=== PATIENT | female | born 1985 | race African-American/Black ===

== ENCOUNTER 2017-11-14 11:35 | Emergency (ER) | payer OTHER ==
[2017-11-14 15:40] LABS: ADD MAN DIFF? NO
[2017-11-14 15:42] LABS: BASOPHILS % 0.5 % (0.0-2.0); EOSINOPHILS # 0.3 10^3/ul (0.0-0.5); EOSINOPHILS % 3.7 % (0.0-7.0); HEMOGLOBIN 8.2 g/dl (12.0-16.0); LYMPHOCYTES # 2.5 10^3/ul (0.8-2.9); LYMPHOCYTES % 31.2 % (15.0-51.0); MEAN CORPUSCULAR HEMOGLOBIN 26.5 pg (29.0-33.0); MEAN CORPUSCULAR HGB CONC 30.4 g/dl (32.0-37.0); MEAN CORPUSCULAR VOLUME 87.1 fl (82.0-101.0); MEAN PLATELET VOLUME 9.4 fl (7.4-10.4); MONOCYTE # 0.6 10^3/ul (0.3-0.9); MONOCYTES % 7.7 % (0.0-11.0); NEUTROPHIL # 4.6 10^3/ul (1.6-7.5); NEUTROPHILS % 56.5 % (39.0-77.0); PLATELET COUNT 576 10^3/UL (140-415); RED CELL DISTRIBUTION WIDTH 20.3 % (11.5-14.5)
[2017-11-14 15:42] LABS: WHITE BLOOD COUNT 8.1 10^3/ul (4.8-10.8)
[2017-11-14 15:59] LABS: ALANINE AMINOTRANSFERASE 24 IU/L (13-69); ALBUMIN 4.5 g/dl (3.3-4.9); ALBUMIN/GLOBULIN RATIO 1.36; ALKALINE PHOSPHATASE 46 IU/L (42-121); ANION GAP 13 (8-16); ASPARTATE AMINO TRANSFERASE 18 IU/L (15-46); BLOOD UREA NITROGEN 10 mg/dl (7-20); CALCIUM 9.5 mg/dl (8.4-10.2); CARBON DIOXIDE 27 mmol/L (21-31); CHLORIDE 105 mmol/L (97-110); CREATININE 0.74 mg/dl (0.44-1.00); GLUCOSE 99 mg/dl (70-220); POTASSIUM 3.4 mmol/L (3.5-5.1); SODIUM 142 mmol/L (135-144); TOTAL PROTEIN 7.8 g/dl (6.1-8.1)
== END 2017-11-14 16:40 | disposition home or self-care (01) ==
LOC: FTE 11:35
DX: D64.9 Anemia, unspecified (principal); E66.9 Obesity, unspecified
CPT/HCPCS: 36415; 80053; 85025; 99283

== ENCOUNTER 2017-12-29 02:47 | Observation (INO) | payer OTHER ==
[2017-12-29 07:27] LABS: ADD MAN DIFF? NO
[2017-12-29 07:35] LABS: ABNORMAL IP MESSAGE 1; BASOPHIL # 0.1 10^3/ul (0.0-0.1); BASOPHILS % 0.7 % (0.0-2.0); EOSINOPHILS # 0.3 10^3/ul (0.0-0.5); EOSINOPHILS % 3.6 % (0.0-7.0); HEMATOCRIT 21.2 % (37.0-47.0); LYMPHOCYTES # 1.7 10^3/ul (0.8-2.9); LYMPHOCYTES % 23.2 % (15.0-51.0); MEAN CORPUSCULAR HEMOGLOBIN 23.2 pg (29.0-33.0); MEAN CORPUSCULAR HGB CONC 29.7 g/dl (32.0-37.0); MEAN CORPUSCULAR VOLUME 78.2 fl (82.0-101.0); MEAN PLATELET VOLUME 10.4 fl (7.4-10.4); MONOCYTE # 0.6 10^3/ul (0.3-0.9); NEUTROPHIL # 4.6 10^3/ul (1.6-7.5); NEUTROPHILS % 64.2 % (39.0-77.0); PLATELET COUNT 364 10^3/UL (140-415); RED BLOOD COUNT 2.71 10^6/ul (4.20-5.40); RED CELL DISTRIBUTION WIDTH 21.2 % (11.5-14.5)
[2017-12-29 07:35] LABS: WHITE BLOOD COUNT 7.2 10^3/ul (4.8-10.8)
[2017-12-29 07:57] LABS: ALANINE AMINOTRANSFERASE 28 IU/L (13-69); ALBUMIN 4.3 g/dl (3.3-4.9); ALBUMIN/GLOBULIN RATIO 1.34; ALKALINE PHOSPHATASE 56 IU/L (42-121); ANION GAP 19 (8-16); ASPARTATE AMINO TRANSFERASE 20 IU/L (15-46); BLOOD UREA NITROGEN 10 mg/dl (7-20); CALCIUM 9.1 mg/dl (8.4-10.2); CARBON DIOXIDE 24 mmol/L (21-31); CHLORIDE 111 mmol/L (97-110); GLUCOSE 111 mg/dl (70-220); LIPASE 774 U/L (23-300); POTASSIUM 3.9 mmol/L (3.5-5.1); SODIUM 150 mmol/L (135-144); TOTAL PROTEIN 7.5 g/dl (6.1-8.1)
[2017-12-29 08:06] LABS: ADD UMIC YES; UR ASCORBIC ACID NEGATIVE (NEGATIVE); UR BACTERIA FEW /HPF (NONE SEEN); UR BILIRUBIN (Dip) NEGATIVE (NEGATIVE); UR BLOOD (Dip) 3+ mg/dL (NEGATIVE); UR CLARITY SLIGHTLY CLOUDY (CLEAR); UR COLOR YELLOW (YELLOW); UR GLUCOSE (Dip) NEGATIVE (NEGATIVE); UR KETONES (Dip) NEGATIVE (NEGATIVE); UR LEUKOCYTE ESTERASE (Dip) NEGATIVE Leu/ul (NEGATIVE); UR NITRITE (Dip) NEGATIVE (NEGATIVE); UR RBC > 182 /HPF (0-5); UR SPECIFIC GRAVITY (Dip) 1.018 (1.003-1.030); UR TOTAL PROTEIN (Dip) 2+ mg/dl (NEGATIVE); UR UROBILINOGEN (Dip) NEGATIVE (NEGATIVE); UR WBC 13 /HPF (0-5)
[2017-12-29 08:14] LABS: POSITIVE DIFF @See below
[2017-12-29 08:15] LABS: HEMOGLOBIN 6.3 g/dl (12.0-16.0); PATH REVIEW? YES
[2017-12-29] MEDS: SOD CHLORIDE 0.9% 250 ML IV (09:09)
[2017-12-29] MEDS ORDERED: ACETAMINOPHEN 325 MG TAB PO ×2 (10:00→11:30)
[2017-12-29] MEDS ORDERED: ONDANSETRON 4 MG INJ IV (10:00)
[2017-12-29 11:08] LABS: IMMEDIATE SPIN CROSSMATCH 1 3
[2017-12-29] MEDS: DOCUSATE SODIUM 100 MG CAP PO ×2 (11:30→23:30)
[2017-12-29] MEDS: FUROSEMIDE 20 MG INJ IV (11:30)
[2017-12-29] MEDS ORDERED: ZOLPIDEM 5 MG TAB PO (11:30)
[2017-12-29] MEDS: FAMOTIDINE 20 MG TAB PO ×2 (11:30→21:43)
[2017-12-29] MEDS: LEVOFLOXACIN 500MG/D5W (PMX) 100 ML IVPB (12:00)
[2017-12-29 14:15] LABS: CANCER ANTIGEN 125 7.2 U/ml (0.0-35.0)
[2017-12-29] MEDS: FERROUS SULFATE (EC) 325 MG TAB PO (21:43)
[2017-12-29] MEDS: HYDROCODONE/APAP (5/325) TAB PO (21:56)
[2017-12-30] MEDS: FERROUS SULFATE (EC) 325 MG TAB PO ×2 (09:04→21:11)
[2017-12-30] MEDS: FAMOTIDINE 20 MG TAB PO ×2 (09:04→21:11)
[2017-12-30] MEDS: HYDROCODONE/APAP (5/325) TAB PO (09:53)
[2017-12-30 10:51] LABS: ADD MAN DIFF? NO
[2017-12-30] MEDS: morphine 2 MG INJ IV ×3 (10:53→21:12)
[2017-12-30 10:58] LABS: BASOPHIL # 0.1 10^3/ul (0.0-0.1); BASOPHILS % 0.7 % (0.0-2.0); EOSINOPHILS # 0.3 10^3/ul (0.0-0.5); EOSINOPHILS % 4.7 % (0.0-7.0); HEMATOCRIT 28.4 % (37.0-47.0); HEMOGLOBIN 9.2 g/dl (12.0-16.0); LYMPHOCYTES # 1.9 10^3/ul (0.8-2.9); LYMPHOCYTES % 26.6 % (15.0-51.0); MEAN CORPUSCULAR HEMOGLOBIN 25.8 pg (29.0-33.0); MEAN CORPUSCULAR HGB CONC 32.4 g/dl (32.0-37.0); MEAN CORPUSCULAR VOLUME 79.6 fl (82.0-101.0); MEAN PLATELET VOLUME 10.3 fl (7.4-10.4); MONOCYTE # 0.5 10^3/ul (0.3-0.9); MONOCYTES % 7.5 % (0.0-11.0); NEUTROPHIL # 4.2 10^3/ul (1.6-7.5); NEUTROPHILS % 59.8 % (39.0-77.0); NUCLEATED RED BLOOD CELLS% 0.3 /100WBC (0.0-0.0); PLATELET COUNT 323 10^3/UL (140-415); RED BLOOD COUNT 3.57 10^6/ul (4.20-5.40); RED CELL DISTRIBUTION WIDTH 19.1 % (11.5-14.5)
[2017-12-30 10:58] LABS: WHITE BLOOD COUNT 7.1 10^3/ul (4.8-10.8)
[2017-12-30] MEDS: SODIUM CHLORIDE 0.45% 500 ML BAG IV* (11:09)
[2017-12-30 11:11] LABS: ANION GAP 18 (8-16); BLOOD UREA NITROGEN 9 mg/dl (7-20); CALCIUM 8.6 mg/dl (8.4-10.2); CARBON DIOXIDE 21 mmol/L (21-31); CHLORIDE 111 mmol/L (97-110); CREATININE 0.79 mg/dl (0.44-1.00); GLUCOSE 112 mg/dl (70-220); MAGNESIUM 1.8 mg/dl (1.7-2.5); PHOSPHORUS 3.1 mg/dl (2.5-4.9); POTASSIUM 3.7 mmol/L (3.5-5.1); SODIUM 146 mmol/L (135-144)
[2017-12-30 11:12] LABS: AMYLASE 69 U/L (11-123)
[2017-12-30 11:12] LABS: LIPASE 59 U/L (23-300)
[2017-12-30] MEDS: DOCUSATE SODIUM 100 MG CAP PO ×2 (11:51→23:42)
[2017-12-30] MEDS: LEVOFLOXACIN 500MG/D5W (PMX) 100 ML IVPB (12:16)
[2017-12-30] MEDS: SOD CHLORIDE 0.45% 1,000 ML IV ×3 (12:16→23:46)
[2017-12-30] MEDS: ONDANSETRON 4 MG INJ IV ×2 (13:14→21:19)
[2017-12-30] MEDS: ALPRAZOLAM 0.25 MG TAB PO (13:35)
[2017-12-30 15:07] LABS: SODIUM 145 mmol/L (135-144)
[2017-12-30] MEDS: SOD FERRIC GLUC COMPLX 125 MG in SOD CHLORIDE 0.9% 100 ML IVPB (16:39)
[2017-12-31] MEDS: morphine 2 MG INJ IV ×3 (01:16→09:45)
[2017-12-31 06:00] LABS: ADD MAN DIFF? NO
[2017-12-31 06:07] LABS: BASOPHIL # 0.1 10^3/ul (0.0-0.1); BASOPHILS % 0.7 % (0.0-2.0); EOSINOPHILS # 0.5 10^3/ul (0.0-0.5); EOSINOPHILS % 4.8 % (0.0-7.0); HEMATOCRIT 27.1 % (37.0-47.0); HEMOGLOBIN 8.9 g/dl (12.0-16.0); LYMPHOCYTES # 2.2 10^3/ul (0.8-2.9); MEAN CORPUSCULAR HGB CONC 32.8 g/dl (32.0-37.0); MEAN CORPUSCULAR VOLUME 79.2 fl (82.0-101.0); MEAN PLATELET VOLUME 10.8 fl (7.4-10.4); MONOCYTE # 0.8 10^3/ul (0.3-0.9); NEUTROPHILS % 62.7 % (39.0-77.0); NUCLEATED RED BLOOD CELLS% 0.3 /100WBC (0.0-0.0); PLATELET COUNT 344 10^3/UL (140-415); RED BLOOD COUNT 3.42 10^6/ul (4.20-5.40); RED CELL DISTRIBUTION WIDTH 19.4 % (11.5-14.5)
[2017-12-31 06:07] LABS: WHITE BLOOD COUNT 9.6 10^3/ul (4.8-10.8)
[2017-12-31 06:23] LABS: ANION GAP 15 (8-16); BLOOD UREA NITROGEN 11 mg/dl (7-20); CALCIUM 8.8 mg/dl (8.4-10.2); CARBON DIOXIDE 24 mmol/L (21-31); CHLORIDE 112 mmol/L (97-110); CREATININE 0.92 mg/dl (0.44-1.00); GLUCOSE 104 mg/dl (70-220); LIPASE 67 U/L (23-300); POTASSIUM 4.1 mmol/L (3.5-5.1); SODIUM 147 mmol/L (135-144)
[2017-12-31 06:23] LABS: AMYLASE 60 U/L (11-123)
[2017-12-31] MEDS: SOD CHLORIDE 0.45% 1,000 ML IV ×3 (08:00→23:24)
[2017-12-31] MEDS: FERROUS SULFATE (EC) 325 MG TAB PO ×2 (08:53→22:01)
[2017-12-31] MEDS: FAMOTIDINE 20 MG TAB PO ×2 (08:53→22:01)
[2017-12-31] MEDS: ONDANSETRON 4 MG INJ IV (09:46)
[2017-12-31] MEDS: DOCUSATE SODIUM 100 MG CAP PO ×2 (11:28→22:01)
[2017-12-31] MEDS: LEVOFLOXACIN 500MG/D5W (PMX) 100 ML IVPB (11:28)
[2017-12-31] MEDS: POLYETHYLENE GLYCOL 17 GM PACKET PO ×2 (13:03→22:01)
[2017-12-31] MEDS ORDERED: LACTULOSE 30ML CUP PO (14:00)
[2017-12-31] MEDS: LACTULOSE 30ML CUP PO (14:04)
[2017-12-31] MEDS: MINERAL OIL 133 ML ENEMA PR (14:24)
[2017-12-31] MEDS ORDERED: traMADol 50 MG TAB PO (15:30)
[2017-12-31] MEDS: SOD FERRIC GLUC COMPLX 125 MG in SOD CHLORIDE 0.9% 100 ML IVPB (17:06)
[2017-12-31] MEDS: MAGNESIUM CITRATE 300 ML BTL PO (22:00)
[2018-01-01] MEDS ORDERED: MINERAL OIL 133 ML ENEMA PR (01:00)
[2018-01-01] MEDS: SOD CHLORIDE 0.45% 1,000 ML IV (07:04)
[2018-01-01] MEDS: POLYETHYLENE GLYCOL 17 GM PACKET PO (09:08)
[2018-01-01] MEDS: FERROUS SULFATE (EC) 325 MG TAB PO (09:08)
[2018-01-01] MEDS: FAMOTIDINE 20 MG TAB PO (09:08)
[2018-01-01] MEDS: DOCUSATE SODIUM 100 MG CAP PO (09:09)
[2018-01-01 09:16] LABS: HEPATITIS C VIRAL ANTIBODY NEGATIVE (NEGATIVE)
[2018-01-01 09:24] LABS: HIV 1&2 ANTIBODY NEGATIVE (NEGATIVE)
[2018-01-01] MEDS: LEVOFLOXACIN 500MG/D5W (PMX) 100 ML IVPB (11:30)
[2018-01-01] MEDS: PEG/ELECTROLYTES 4L BTL PO (12:57)
[2018-01-01] MEDS: SOD FERRIC GLUC COMPLX 125 MG in SOD CHLORIDE 0.9% 100 ML IVPB (17:50)
== END 2018-01-01 19:00 | disposition home or self-care (01) ==
LOC: FTE 02:47 → MS2 10:00
DX: N92.1 Excessive and frequent menstruation with irregular cycle (principal); N93.8 Other specified abnormal uterine and vaginal bleeding; D25.9 Leiomyoma of uterus, unspecified; K56.41 Fecal impaction; K85.90 Acute pancreatitis without necrosis or infection, unspecified; F12.10 Cannabis abuse, uncomplicated; E66.01 Morbid (severe) obesity due to excess calories; Z68.41 Body mass index [BMI] 40.0-44.9, adult; E87.0 Hyperosmolality and hypernatremia
CPT/HCPCS: 36430; 72195; 74018; 74176; 76705; 76830; 76856; 80048; 80053; 81001; 82150; 83690; 83735; 84100; 84295; 84703; 85025; 86304; 86703; 86803; 86850; 86900; 86901; 86920; 87086; 87536; 99285-25

== ENCOUNTER 2018-02-10 08:34 | Emergency (ER) | payer OTHER | END 2018-02-10 10:14 | disposition home or self-care (01) | LOC: FTE 08:34 | DX: J20.9 Acute bronchitis, unspecified (principal); J45.909 Unspecified asthma, uncomplicated | CPT/HCPCS: 99284 ==

== ENCOUNTER 2018-03-01 15:56 | Emergency (ER) | payer OTHER ==
[2018-03-01] MEDS: KETOROLAC 30 MG INJ IV (17:49)
[2018-03-01 17:52] LABS: ADD MAN DIFF? NO
[2018-03-01 17:55] LABS: WHITE BLOOD COUNT 8.9 10^3/ul (4.8-10.8)
[2018-03-01 17:55] LABS: BASOPHILS % 0.3 % (0.0-2.0); EOSINOPHILS # 0.4 10^3/ul (0.0-0.5); HEMATOCRIT 28.8 % (37.0-47.0); HEMOGLOBIN 8.7 g/dl (12.0-16.0); LYMPHOCYTES # 2.5 10^3/ul (0.8-2.9); LYMPHOCYTES % 28.1 % (15.0-51.0); MEAN CORPUSCULAR HGB CONC 30.2 g/dl (32.0-37.0); MONOCYTE # 0.7 10^3/ul (0.3-0.9); MONOCYTES % 7.7 % (0.0-11.0); NEUTROPHIL # 5.3 10^3/ul (1.6-7.5); NEUTROPHILS % 59.6 % (39.0-77.0); PLATELET COUNT 576 10^3/UL (140-415); RED BLOOD COUNT 3.35 10^6/ul (4.20-5.40)
[2018-03-01 18:10] LABS: ADD UMIC YES; UR AMORPHOUS CRYSTAL FEW /HPF (NONE SEEN); UR ASCORBIC ACID 40 mg/dL (NEGATIVE); UR BILIRUBIN (Dip) NEGATIVE (NEGATIVE); UR BLOOD (Dip) NEGATIVE (NEGATIVE); UR CLARITY CLOUDY (CLEAR); UR COLOR YELLOW (YELLOW); UR GLUCOSE (Dip) NEGATIVE (NEGATIVE); UR KETONES (Dip) NEGATIVE (NEGATIVE); UR LEUKOCYTE ESTERASE (Dip) NEGATIVE Leu/ul (NEGATIVE); UR NITRITE (Dip) NEGATIVE (NEGATIVE); UR RBC 0 /HPF (0-5); UR SQUAMOUS EPITHELIAL CELL FEW /HPF (FEW); UR TOTAL PROTEIN (Dip) NEGATIVE (NEGATIVE); UR UROBILINOGEN (Dip) NEGATIVE (NEGATIVE); UR WBC 0 /HPF (0-5)
[2018-03-01 18:15] LABS: ALANINE AMINOTRANSFERASE 22 IU/L (13-69); ALBUMIN 4.5 g/dl (3.3-4.9); ALBUMIN/GLOBULIN RATIO 1.28; ALKALINE PHOSPHATASE 46 IU/L (42-121); ANION GAP 15 (8-16); ASPARTATE AMINO TRANSFERASE 26 IU/L (15-46); BILIRUBIN,INDIRECT 0.1 mg/dl (0-1.1); BILIRUBIN,TOTAL 0.1 mg/dl (0.2-1.3); BLOOD UREA NITROGEN 11 mg/dl (7-20); CALCIUM 9.2 mg/dl (8.4-10.2); CARBON DIOXIDE 26 mmol/L (21-31); CHLORIDE 105 mmol/L (97-110); CREATININE 0.74 mg/dl (0.44-1.00); GLUCOSE 91 mg/dl (70-220); LIPASE 218 U/L (23-300); SODIUM 142 mmol/L (135-144)
== END 2018-03-01 18:58 | disposition home or self-care (01) ==
LOC: FTE 15:56
DX: R10.31 Right lower quadrant pain (principal)
CPT/HCPCS: 36415; 80053; 81001; 81025; 83690; 85025; 96374; 99284-25

== ENCOUNTER 2018-03-09 22:10 | Emergency (ER) | payer OTHER ==
[2018-03-10] MEDS: morphine 4 MG/ML VIAL IV (00:24)
[2018-03-10] MEDS: ONDANSETRON 4 MG INJ IV (00:24)
[2018-03-10] MEDS: LACTATED RINGER'S 1,000 ML IV (00:25)
[2018-03-10 00:34] LABS: ADD MAN DIFF? NO
[2018-03-10 00:52] LABS: WHITE BLOOD COUNT 9.5 10^3/ul (4.8-10.8)
[2018-03-10 00:52] LABS: BASOPHIL # 0.1 10^3/ul (0.0-0.1); BASOPHILS % 0.5 % (0.0-2.0); EOSINOPHILS # 0.4 10^3/ul (0.0-0.5); EOSINOPHILS % 4.4 % (0.0-7.0); HEMATOCRIT 31.3 % (37.0-47.0); HEMOGLOBIN 9.2 g/dl (12.0-16.0); LYMPHOCYTES # 2.6 10^3/ul (0.8-2.9); LYMPHOCYTES % 27.7 % (15.0-51.0); MEAN CORPUSCULAR HEMOGLOBIN 25.2 pg (29.0-33.0); MEAN CORPUSCULAR HGB CONC 29.4 g/dl (32.0-37.0); MEAN CORPUSCULAR VOLUME 85.8 fl (82.0-101.0); MEAN PLATELET VOLUME 10.3 fl (7.4-10.4); MONOCYTE # 0.9 10^3/ul (0.3-0.9); MONOCYTES % 9.4 % (0.0-11.0); NEUTROPHIL # 5.5 10^3/ul (1.6-7.5); NEUTROPHILS % 57.7 % (39.0-77.0); PLATELET COUNT 484 10^3/UL (140-415); RED BLOOD COUNT 3.65 10^6/ul (4.20-5.40); RED CELL DISTRIBUTION WIDTH 20.4 % (11.5-14.5)
[2018-03-10 00:58] LABS: ALANINE AMINOTRANSFERASE 21 IU/L (13-69); ALBUMIN 4.3 g/dl (3.3-4.9); ALBUMIN/GLOBULIN RATIO 1.26; ALKALINE PHOSPHATASE 49 IU/L (42-121); ANION GAP 14 (8-16); ASPARTATE AMINO TRANSFERASE 20 IU/L (15-46); BLOOD UREA NITROGEN 12 mg/dl (7-20); CALCIUM 9.7 mg/dl (8.4-10.2); CARBON DIOXIDE 29 mmol/L (21-31); CHLORIDE 108 mmol/L (97-110); CREATININE 0.84 mg/dl (0.44-1.00); GLUCOSE 78 mg/dl (70-220); LIPASE 95 U/L (23-300); POTASSIUM 3.5 mmol/L (3.5-5.1); SODIUM 147 mmol/L (135-144); TOTAL PROTEIN 7.7 g/dl (6.1-8.1)
[2018-03-10 01:45] LABS: URINE BLOOD (Dip) POC Negative (NEGATIVE); URINE GLUCOSE (Dip) POC Negative (NEGATIVE); URINE KETONES (Dip) POC Negative (NEGATIVE); URINE LEUKOCYTE EST (Dip) POC Negative (NEGATIVE); URINE NITRITE (Dip) POC Negative (NEGATIVE); URINE TOTAL PROTEIN POC Trace (NEGATIVE)
[2018-03-10 01:45] LABS: URINE PH (Dip) POC 7.5 (5.0-8.5)
== END 2018-03-10 02:50 | disposition home or self-care (01) ==
LOC: FTE 03-10 02:50
DX: N83.201 Unspecified ovarian cyst, right side (principal)
CPT/HCPCS: 36415; 76830; 76856; 80053; 81003; 81025; 83690; 85025; 96361; 96374; 96375; 99285-25

== ENCOUNTER 2018-03-18 23:50 | Emergency (ER) | payer OTHER ==
[2018-03-19 02:39] LABS: ADD MAN DIFF? NO
[2018-03-19 02:40] LABS: ABNORMAL IP MESSAGE 1; BASOPHILS % 0.4 % (0.0-2.0); EOSINOPHILS # 0.3 10^3/ul (0.0-0.5); EOSINOPHILS % 4.4 % (0.0-7.0); HEMATOCRIT 23.4 % (37.0-47.0); LYMPHOCYTES # 2.4 10^3/ul (0.8-2.9); LYMPHOCYTES % 35.5 % (15.0-51.0); MEAN CORPUSCULAR HEMOGLOBIN 25.5 pg (29.0-33.0); MEAN CORPUSCULAR HGB CONC 29.5 g/dl (32.0-37.0); MEAN CORPUSCULAR VOLUME 86.3 fl (82.0-101.0); MEAN PLATELET VOLUME 9.8 fl (7.4-10.4); MONOCYTE # 0.6 10^3/ul (0.3-0.9); MONOCYTES % 8.8 % (0.0-11.0); NEUTROPHIL # 3.5 10^3/ul (1.6-7.5); NEUTROPHILS % 50.6 % (39.0-77.0); PLATELET COUNT 376 10^3/UL (140-415); RED BLOOD COUNT 2.71 10^6/ul (4.20-5.40); RED CELL DISTRIBUTION WIDTH 19.9 % (11.5-14.5)
[2018-03-19 02:40] LABS: WHITE BLOOD COUNT 6.8 10^3/ul (4.8-10.8)
[2018-03-19 03:00] LABS: ALANINE AMINOTRANSFERASE 25 IU/L (13-69); ALBUMIN 4.1 g/dl (3.3-4.9); ALBUMIN/GLOBULIN RATIO 1.28; ALKALINE PHOSPHATASE 50 IU/L (42-121); ANION GAP 17 (8-16); ASPARTATE AMINO TRANSFERASE 18 IU/L (15-46); BILIRUBIN,INDIRECT 0.1 mg/dl (0-1.1); BILIRUBIN,TOTAL 0.1 mg/dl (0.2-1.3); BLOOD UREA NITROGEN 13 mg/dl (7-20); CALCIUM 8.9 mg/dl (8.4-10.2); CARBON DIOXIDE 25 mmol/L (21-31); CHLORIDE 111 mmol/L (97-110); CREATININE 0.76 mg/dl (0.44-1.00); GLUCOSE 105 mg/dl (70-220); LIPASE 112 U/L (23-300); POTASSIUM 3.9 mmol/L (3.5-5.1); SODIUM 149 mmol/L (135-144); TOTAL PROTEIN 7.3 g/dl (6.1-8.1)
[2018-03-19 03:20] LABS: HEMOGLOBIN 6.9 g/dl (12.0-16.0); POSITIVE DIFF @See below
[2018-03-19] MEDS: HYDROCODONE/APAP (10/325) TAB PO (04:34)
[2018-03-19 05:08] LABS: IMMEDIATE SPIN CROSSMATCH 1 1
[2018-03-19] MEDS: SOD CHLORIDE 0.9% 250 ML IV (05:20)
== END 2018-03-19 08:35 | disposition home or self-care (01) ==
LOC: FTE 23:50 → E/R 03-19 08:35
DX: D64.9 Anemia, unspecified (principal); D25.9 Leiomyoma of uterus, unspecified; R40.2142 Coma scale, eyes open, spontaneous, at arrival to emergency department; R40.2252 Coma scale, best verbal response, oriented, at arrival to emergency department; R40.2362 Coma scale, best motor response, obeys commands, at arrival to emergency department; R10.2 Pelvic and perineal pain
CPT/HCPCS: 36430; 76856; 80053; 83690; 84703; 85025; 86850; 86900; 86901; 86920; 99285-25

== ENCOUNTER 2018-04-06 23:09 | Emergency (ER) | payer OTHER ==
[2018-04-07 04:07] LABS: URINE BLOOD (Dip) POC Negative (NEGATIVE); URINE GLUCOSE (Dip) POC Negative (NEGATIVE); URINE KETONES (Dip) POC Negative (NEGATIVE); URINE LEUKOCYTE EST (Dip) POC Negative (NEGATIVE); URINE NITRITE (Dip) POC Negative (NEGATIVE); URINE TOTAL PROTEIN POC Negative (NEGATIVE)
[2018-04-07] MEDS: ONDANSETRON 4 MG INJ IV (04:18)
[2018-04-07] MEDS: KETOROLAC 30 MG INJ IV (04:18)
[2018-04-07] MEDS: SOD CHLORIDE 0.9% 1,000 ML IV (04:18)
[2018-04-07 04:20] LABS: ADD MAN DIFF? NO
[2018-04-07 04:22] LABS: BASOPHIL # 0.1 10^3/ul (0.0-0.1); BASOPHILS % 0.6 % (0.0-2.0); EOSINOPHILS # 0.5 10^3/ul (0.0-0.5); EOSINOPHILS % 4.4 % (0.0-7.0); HEMATOCRIT 29.8 % (37.0-47.0); LYMPHOCYTES # 2.6 10^3/ul (0.8-2.9); LYMPHOCYTES % 24.5 % (15.0-51.0); MEAN CORPUSCULAR HEMOGLOBIN 24.3 pg (29.0-33.0); MEAN CORPUSCULAR HGB CONC 30.2 g/dl (32.0-37.0); MEAN CORPUSCULAR VOLUME 80.5 fl (82.0-101.0); MONOCYTE # 0.9 10^3/ul (0.3-0.9); MONOCYTES % 8.7 % (0.0-11.0); NEUTROPHIL # 6.5 10^3/ul (1.6-7.5); NEUTROPHILS % 61.5 % (39.0-77.0); PLATELET COUNT 461 10^3/UL (140-415); RED CELL DISTRIBUTION WIDTH 18.7 % (11.5-14.5)
[2018-04-07 04:22] LABS: WHITE BLOOD COUNT 10.5 10^3/ul (4.8-10.8)
[2018-04-07 04:42] LABS: ALANINE AMINOTRANSFERASE 19 IU/L (13-69); ALBUMIN 4.4 g/dl (3.3-4.9); ALBUMIN/GLOBULIN RATIO 1.29; ALKALINE PHOSPHATASE 52 IU/L (42-121); ANION GAP 14 (8-16); ASPARTATE AMINO TRANSFERASE 17 IU/L (15-46); BILIRUBIN,INDIRECT 0.2 mg/dl (0-1.1); BILIRUBIN,TOTAL 0.2 mg/dl (0.2-1.3); BLOOD UREA NITROGEN 13 mg/dl (7-20); CALCIUM 9.2 mg/dl (8.4-10.2); CARBON DIOXIDE 21 mmol/L (21-31); CHLORIDE 111 mmol/L (97-110); CREATININE 0.73 mg/dl (0.44-1.00); GLUCOSE 107 mg/dl (70-220); LIPASE 131 U/L (23-300); POTASSIUM 3.8 mmol/L (3.5-5.1); SODIUM 142 mmol/L (135-144); TOTAL PROTEIN 7.8 g/dl (6.1-8.1)
== END 2018-04-07 06:20 | disposition home or self-care (01) ==
LOC: E/R 23:09
DX: D64.9 Anemia, unspecified (principal); R10.31 Right lower quadrant pain; R40.2142 Coma scale, eyes open, spontaneous, at arrival to emergency department; R40.2252 Coma scale, best verbal response, oriented, at arrival to emergency department; R40.2362 Coma scale, best motor response, obeys commands, at arrival to emergency department; Z87.891 Personal history of nicotine dependence
CPT/HCPCS: 36415; 74176; 80053; 81003; 81025; 83690; 85025; 96374; 96375; 99285-25

== ENCOUNTER 2018-05-20 01:15 | Inpatient (IN) | payer OTHER ==
[2018-05-20 05:42] LABS: ADD MAN DIFF? NO
[2018-05-20 05:48] LABS: ABNORMAL IP MESSAGE 1; BASOPHILS % 0.4 % (0.0-2.0); EOSINOPHILS # 0.4 10^3/ul (0.0-0.5); EOSINOPHILS % 4.5 % (0.0-7.0); HEMATOCRIT 22.1 % (37.0-47.0); LYMPHOCYTES % 24.5 % (15.0-51.0); MEAN CORPUSCULAR HGB CONC 28.5 g/dl (32.0-37.0); MEAN PLATELET VOLUME 9.3 fl (7.4-10.4); MONOCYTE # 0.9 10^3/ul (0.3-0.9); MONOCYTES % 10.7 % (0.0-11.0); NEUTROPHIL # 4.9 10^3/ul (1.6-7.5); NEUTROPHILS % 59.5 % (39.0-77.0); NUCLEATED RED BLOOD CELLS% 0.4 /100WBC (0.0-0.0); PLATELET COUNT 607 10^3/UL (140-415); RED BLOOD COUNT 2.87 10^6/ul (4.20-5.40); RED CELL DISTRIBUTION WIDTH 20.8 % (11.5-14.5)
[2018-05-20 05:48] LABS: WHITE BLOOD COUNT 8.2 10^3/ul (4.8-10.8)
[2018-05-20 05:54] LABS: POSITIVE DIFF @See below
[2018-05-20 05:55] LABS: HEMOGLOBIN 6.3 g/dl (12.0-16.0)
[2018-05-20] MEDS ORDERED: ALBUTEROL/IPRATROPIUM (NEB) 3 ML AMP HHN (07:00)
[2018-05-20] MEDS ORDERED: NACL 0.9% 3 ML SYG IV (07:00)
[2018-05-20] MEDS ORDERED: ACETAMINOPHEN 325 MG TAB PO (07:00)
[2018-05-20 07:19] LABS: IMMEDIATE SPIN CROSSMATCH 1 2
[2018-05-20] MEDS: AL HYDROX/MG HYDROX/SIMETH 30 ML CUP PO (07:34)
[2018-05-20] MEDS: FAMOTIDINE 20 MG TAB PO ×2 (08:00→20:09)
[2018-05-20 08:04] LABS: ALANINE AMINOTRANSFERASE 18 IU/L (13-69); ALBUMIN 4.1 g/dl (3.3-4.9); ALBUMIN/GLOBULIN RATIO 1.32; ALKALINE PHOSPHATASE 52 IU/L (42-121); ANION GAP 12 (8-16); ASPARTATE AMINO TRANSFERASE 23 IU/L (15-46); BILIRUBIN,INDIRECT 0.1 mg/dl (0-1.1); BILIRUBIN,TOTAL 0.1 mg/dl (0.2-1.3); BLOOD UREA NITROGEN 12 mg/dl (7-20); CALCIUM 9.1 mg/dl (8.4-10.2); CARBON DIOXIDE 24 mmol/L (21-31); CHLORIDE 111 mmol/L (97-110); CREATININE 0.77 mg/dl (0.44-1.00); GLUCOSE 109 mg/dl (70-220); LIPASE 92 U/L (23-300); POTASSIUM 3.6 mmol/L (3.5-5.1); SODIUM 143 mmol/L (135-144); TOTAL PROTEIN 7.2 g/dl (6.1-8.1)
[2018-05-20] MEDS: morphine 2 MG INJ IV ×3 (10:06→18:00)
[2018-05-20] MEDS: FERROUS SULFATE (EC) 325 MG TAB PO ×2 (10:06→20:09)
[2018-05-20] MEDS: ONDANSETRON 4 MG INJ IV (10:08)
[2018-05-20 11:11] LABS: IRON 31 ug/dl (35-150)
[2018-05-20 11:21] LABS: % IRON SATURATION 8 % SAT (22-52); TOTAL IRON BINDING CAPACITY 413 ug/dl (241-421)
[2018-05-20] MEDS: hydrALAzine 20 MG INJ IV (13:46)
[2018-05-20] MEDS: SOD FERRIC GLUC COMPLX 125 MG in SOD CHLORIDE 0.9% 100 ML IVPB (19:25)
[2018-05-21] MEDS: morphine 2 MG INJ IV ×2 (00:11→09:25)
[2018-05-21] MEDS: FERROUS SULFATE (EC) 325 MG TAB PO ×2 (09:24→20:29)
[2018-05-21] MEDS: FAMOTIDINE 20 MG TAB PO ×2 (09:24→20:29)
[2018-05-21 09:49] LABS: ADD MAN DIFF? NO
[2018-05-21 09:50] LABS: BASOPHIL # 0.1 10^3/ul (0.0-0.1); BASOPHILS % 0.6 % (0.0-2.0); EOSINOPHILS # 0.2 10^3/ul (0.0-0.5); EOSINOPHILS % 2.1 % (0.0-7.0); HEMATOCRIT 27.6 % (37.0-47.0); HEMOGLOBIN 8.3 g/dl (12.0-16.0); LYMPHOCYTES # 2.1 10^3/ul (0.8-2.9); LYMPHOCYTES % 19.6 % (15.0-51.0); MEAN CORPUSCULAR HEMOGLOBIN 23.3 pg (29.0-33.0); MEAN CORPUSCULAR HGB CONC 30.1 g/dl (32.0-37.0); MEAN CORPUSCULAR VOLUME 77.5 fl (82.0-101.0); MEAN PLATELET VOLUME 9.9 fl (7.4-10.4); MONOCYTE # 0.8 10^3/ul (0.3-0.9); MONOCYTES % 7.1 % (0.0-11.0); NEUTROPHIL # 7.4 10^3/ul (1.6-7.5); NEUTROPHILS % 68.9 % (39.0-77.0); NUCLEATED RED BLOOD CELLS # 0.1 10^3/ul (0.0-0.0); NUCLEATED RED BLOOD CELLS% 0.6 /100WBC (0.0-0.0); PLATELET COUNT 609 10^3/UL (140-415); RED BLOOD COUNT 3.56 10^6/ul (4.20-5.40)
[2018-05-21 09:50] LABS: WHITE BLOOD COUNT 10.8 10^3/ul (4.8-10.8)
[2018-05-21 10:14] LABS: ANION GAP 11 (8-16); BLOOD UREA NITROGEN 7 mg/dl (7-20); CALCIUM 8.9 mg/dl (8.4-10.2); CARBON DIOXIDE 24 mmol/L (21-31); CHLORIDE 111 mmol/L (97-110); CREATININE 0.75 mg/dl (0.44-1.00); GLUCOSE 109 mg/dl (70-220); MAGNESIUM 1.9 mg/dl (1.7-2.5); PHOSPHORUS 2.7 mg/dl (2.5-4.9); POTASSIUM 3.6 mmol/L (3.5-5.1); SODIUM 142 mmol/L (135-144)
[2018-05-21] MEDS: morphine LIQ (10 MG/5 ML) CUP PO ×2 (15:01→21:05)
[2018-05-21] MEDS: SOD FERRIC GLUC COMPLX 125 MG in SOD CHLORIDE 0.9% 100 ML IVPB (18:19)
[2018-05-22] MEDS: morphine LIQ (10 MG/5 ML) CUP PO ×2 (01:23→09:37)
[2018-05-22] MEDS: FERROUS SULFATE (EC) 325 MG TAB PO (09:32)
[2018-05-22] MEDS: FAMOTIDINE 20 MG TAB PO (09:32)
[2018-05-22 13:17] LABS: ADD MAN DIFF? NO
[2018-05-22 13:19] LABS: BASOPHIL # 0.1 10^3/ul (0.0-0.1); BASOPHILS % 0.6 % (0.0-2.0); EOSINOPHILS # 0.3 10^3/ul (0.0-0.5); EOSINOPHILS % 2.1 % (0.0-7.0); HEMATOCRIT 29.5 % (37.0-47.0); HEMOGLOBIN 8.8 g/dl (12.0-16.0); LYMPHOCYTES # 2.5 10^3/ul (0.8-2.9); MEAN CORPUSCULAR HEMOGLOBIN 23.5 pg (29.0-33.0); MEAN CORPUSCULAR HGB CONC 29.8 g/dl (32.0-37.0); MEAN CORPUSCULAR VOLUME 78.7 fl (82.0-101.0); MONOCYTES % 6.7 % (0.0-11.0); NEUTROPHIL # 10.5 10^3/ul (1.6-7.5); NEUTROPHILS % 72.7 % (39.0-77.0); NUCLEATED RED BLOOD CELLS # 0.1 10^3/ul (0.0-0.0); NUCLEATED RED BLOOD CELLS% 0.5 /100WBC (0.0-0.0); PLATELET COUNT 656 10^3/UL (140-415); RED BLOOD COUNT 3.75 10^6/ul (4.20-5.40)
[2018-05-22 13:19] LABS: WHITE BLOOD COUNT 14.5 10^3/ul (4.8-10.8)
[2018-05-22 13:35] LABS: ANION GAP 13 (8-16); BLOOD UREA NITROGEN 9 mg/dl (7-20); CALCIUM 9.1 mg/dl (8.4-10.2); CARBON DIOXIDE 22 mmol/L (21-31); CHLORIDE 109 mmol/L (97-110); CREATININE 0.84 mg/dl (0.44-1.00); GLUCOSE 97 mg/dl (70-220); POTASSIUM 3.9 mmol/L (3.5-5.1); SODIUM 140 mmol/L (135-144)
[2018-05-22 13:49] LABS: PHOSPHORUS 3.6 mg/dl (2.5-4.9)
[2018-05-22] MEDS ORDERED: HARD FAT/PHENYLEPHRINE SUPP PR (14:30)
[2018-05-22] MEDS ORDERED: traMADol 50 MG TAB PO (16:30)
[2018-05-22] MEDS ORDERED: DOCUSATE SODIUM 100 MG CAP PO (21:00)
[2018-05-22] MEDS ORDERED: PSYLLIUM 28% PACKET PO ×2 (21:00)
== END 2018-05-22 16:10 | disposition left against medical advice (07) | DRG 812 ==
LOC: E/R 01:15 → 2NE 06:05
PROVIDERS: Pediatrics Neonatal-Perinatal Medicine
PROC: 30233N1 Transfusion of Nonautologous Red Blood Cells into Peripheral Vein, Percutaneous Approach (ICD-10-PCS; principal; 2018-05-20)
DX: D64.9 Anemia, unspecified (principal); Z68.41 Body mass index [BMI] 40.0-44.9, adult; E66.01 Morbid (severe) obesity due to excess calories; K64.4 Residual hemorrhoidal skin tags; N93.8 Other specified abnormal uterine and vaginal bleeding; K62.89 Other specified diseases of anus and rectum; K21.0 Gastro-esophageal reflux disease with esophagitis; F17.210 Nicotine dependence, cigarettes, uncomplicated; F12.10 Cannabis abuse, uncomplicated; G89.4 Chronic pain syndrome; D25.9 Leiomyoma of uterus, unspecified; K64.9 Unspecified hemorrhoids; K64.8 Other hemorrhoids; Z90.49 Acquired absence of other specified parts of digestive tract
CPT/HCPCS: 36430; 80048; 80053; 83540; 83690; 83735; 84100; 85025; 86644; 86850; 86900; 86901; 86920; 99285-25

== ENCOUNTER 2018-07-03 10:09 | Emergency (ER) | payer OTHER | END 2018-07-03 11:14 | disposition home or self-care (01) | LOC: FTE 10:09 | DX: R21 Rash and other nonspecific skin eruption (principal); K59.00 Constipation, unspecified | CPT/HCPCS: 99282; Z7502 ==

== ENCOUNTER 2018-08-03 14:31 | Emergency (ER) | payer OTHER ==
[2018-08-03 17:29] LABS: ADD UMIC NO; UR ASCORBIC ACID 40 mg/dL (NEGATIVE); UR BILIRUBIN (Dip) NEGATIVE (NEGATIVE); UR BLOOD (Dip) NEGATIVE (NEGATIVE); UR CLARITY CLEAR (CLEAR); UR COLOR YELLOW (YELLOW); UR GLUCOSE (Dip) NEGATIVE (NEGATIVE); UR KETONES (Dip) TRACE mg/dL (NEGATIVE); UR LEUKOCYTE ESTERASE (Dip) NEGATIVE Leu/ul (NEGATIVE); UR NITRITE (Dip) NEGATIVE (NEGATIVE); UR SPECIFIC GRAVITY (Dip) 1.029 (1.003-1.030); UR TOTAL PROTEIN (Dip) NEGATIVE (NEGATIVE); UR UROBILINOGEN (Dip) NEGATIVE (NEGATIVE)
[2018-08-03 17:34] LABS: ADD MAN DIFF? NO
[2018-08-03 17:41] LABS: WHITE BLOOD COUNT 9.9 10^3/ul (4.8-10.8)
[2018-08-03 17:41] LABS: ABNORMAL IP MESSAGE 1; BASOPHIL # 0.1 10^3/ul (0.0-0.1); BASOPHILS % 0.5 % (0.0-2.0); EOSINOPHILS # 0.5 10^3/ul (0.0-0.5); EOSINOPHILS % 4.8 % (0.0-7.0); HEMATOCRIT 26.2 % (37.0-47.0); HEMOGLOBIN 7.3 g/dl (12.0-16.0); LYMPHOCYTES # 2.9 10^3/ul (0.8-2.9); LYMPHOCYTES % 29.8 % (15.0-51.0); MEAN CORPUSCULAR HEMOGLOBIN 23.1 pg (29.0-33.0); MEAN CORPUSCULAR HGB CONC 27.9 g/dl (32.0-37.0); MEAN CORPUSCULAR VOLUME 82.9 fl (82.0-101.0); MEAN PLATELET VOLUME 9.9 fl (7.4-10.4); MONOCYTE # 0.7 10^3/ul (0.3-0.9); MONOCYTES % 6.9 % (0.0-11.0); NEUTROPHIL # 5.7 10^3/ul (1.6-7.5); NEUTROPHILS % 57.7 % (39.0-77.0); NUCLEATED RED BLOOD CELLS% 0.2 /100WBC (0.0-0.0); PLATELET COUNT 431 10^3/UL (140-415); RED BLOOD COUNT 3.16 10^6/ul (4.20-5.40); RED CELL DISTRIBUTION WIDTH 28.7 % (11.5-14.5)
[2018-08-03 17:43] LABS: POSITIVE DIFF @See below
[2018-08-03] MEDS: KETOROLAC 15 MG INJ IV (17:45)
[2018-08-03 18:33] LABS: ALANINE AMINOTRANSFERASE 16 IU/L (13-69); ALBUMIN 4.4 g/dl (3.3-4.9); ALBUMIN/GLOBULIN RATIO 1.37; ALKALINE PHOSPHATASE 49 IU/L (42-121); ANION GAP 10 (5-13); ASPARTATE AMINO TRANSFERASE 30 IU/L (15-46); BILIRUBIN,INDIRECT 0.1 mg/dl (0-1.1); BILIRUBIN,TOTAL 0.1 mg/dl (0.2-1.3); BLOOD UREA NITROGEN 11 mg/dl (7-20); CALCIUM 9.3 mg/dl (8.4-10.2); CARBON DIOXIDE 24 mmol/L (21-31); CHLORIDE 109 mmol/L (97-110); CREATININE 0.78 mg/dl (0.44-1.00); GLUCOSE 100 mg/dl (70-220); LIPASE 108 U/L (23-300); POTASSIUM 3.6 mmol/L (3.5-5.1); SODIUM 143 mmol/L (135-144); TOTAL PROTEIN 7.6 g/dl (6.1-8.1)
== END 2018-08-03 19:52 | disposition home or self-care (01) ==
LOC: FTE 14:31
DX: D64.9 Anemia, unspecified (principal)
CPT/HCPCS: 74176; 80053; 81003; 81025; 83690; 85025; 93005; 96374; 99285-25

== ENCOUNTER 2018-08-25 13:33 | Inpatient (IN) | payer OTHER ==
[2018-08-25 15:28] LABS: ABNORMAL IP MESSAGE 1; HEMATOCRIT 21.2 % (37.0-47.0); MEAN CORPUSCULAR HEMOGLOBIN 22.6 pg (29.0-33.0); MEAN CORPUSCULAR HGB CONC 28.8 g/dl (32.0-37.0); MEAN CORPUSCULAR VOLUME 78.5 fl (82.0-101.0); MEAN PLATELET VOLUME 10.2 fl (7.4-10.4); PLATELET COUNT 456 10^3/UL (140-415); RED CELL DISTRIBUTION WIDTH 22.7 % (11.5-14.5)
[2018-08-25 15:31] LABS: HEMOGLOBIN 6.1 g/dl (12.0-16.0); POSITIVE DIFF @See below
[2018-08-25 15:32] LABS: ADD MAN DIFF? YES; PATH REVIEW? YES
[2018-08-25 15:49] LABS: ANION GAP 9 (5-13); BLOOD UREA NITROGEN 14 mg/dl (7-20); CALCIUM 9.3 mg/dl (8.4-10.2); CARBON DIOXIDE 25 mmol/L (21-31); CHLORIDE 108 mmol/L (97-110); CREATININE 0.91 mg/dl (0.44-1.00); Estimated GFR > 60 mL/min (>60); GLUCOSE 90 mg/dl (70-220); POTASSIUM 3.8 mmol/L (3.5-5.1); SODIUM 142 mmol/L (135-144)
[2018-08-25 15:53] LABS: ANISOCYTOSIS 1+ (0-0); BASOPHIL #M 0.1 10^3/ul (0.0-0.0); BASOPHILS % (M) 2 % (0-2); EOSINOPHILS % (M) 5 % (0-7); GIANT THROMBO% (M) 1 % (0-0); HYPOCHROMASIA 1+ (0-0); LYMPHOCYTES #M 2.7 10^3/ul (0.8-2.9); LYMPHOCYTES % (M) 30 % (15-51); MICROCYTOSIS 1+ (0-0); MONOCYTE #M 0.4 10^3/ul (0.3-0.9); MONOCYTES % (M) 5 % (0-11); PLATELET ESTIMATE NORMAL; POLYCHROMASIA 2+ (0-0); REACTIVE LYMPHOCYTES% (M) 1 % (0-0); SEGMENTED NEUTROPHILS (M) % 57 % (39-77); SMUDGE%M 15 % (0-0)
[2018-08-25] MEDS ORDERED: ZOLPIDEM 5 MG TAB PO (17:30)
[2018-08-25] MEDS ORDERED: ACETAMINOPHEN 325 MG TAB PO (17:30)
[2018-08-25] MEDS ORDERED: MAGNESIUM HYDROXIDE 30ML CUP PO (17:30)
[2018-08-25] MEDS ORDERED: NACL 0.9% 3 ML SYG IV (17:30)
[2018-08-25] MEDS ORDERED: HYDROCODONE/APAP (5/325) TAB PO (17:30)
[2018-08-25] MEDS ORDERED: DOCUSATE SODIUM 100 MG CAP PO (17:30)
[2018-08-25] MEDS ORDERED: ONDANSETRON 4 MG INJ IV (17:30)
[2018-08-25] MEDS: morphine 2 MG INJ IV ×2 (18:29→22:26)
[2018-08-25 22:40] LABS: IMMEDIATE SPIN CROSSMATCH 1 2
[2018-08-26] MEDS: morphine 2 MG INJ IV ×3 (02:42→11:59)
[2018-08-26] MEDS: PANTOPRAZOLE (EC) 40 MG TAB PO (06:35)
[2018-08-26 08:10] LABS: ADD MAN DIFF? NO
[2018-08-26 08:11] LABS: WHITE BLOOD COUNT 8.3 10^3/ul (4.8-10.8)
[2018-08-26 08:11] LABS: BASOPHIL # 0.1 10^3/ul (0.0-0.1); BASOPHILS % 0.8 % (0.0-2.0); EOSINOPHILS # 0.5 10^3/ul (0.0-0.5); EOSINOPHILS % 5.7 % (0.0-7.0); HEMOGLOBIN 7.4 g/dl (12.0-16.0); LYMPHOCYTES # 1.9 10^3/ul (0.8-2.9); LYMPHOCYTES % 22.3 % (15.0-51.0); MEAN CORPUSCULAR HEMOGLOBIN 23.3 pg (29.0-33.0); MEAN CORPUSCULAR HGB CONC 29.6 g/dl (32.0-37.0); MEAN CORPUSCULAR VOLUME 78.6 fl (82.0-101.0); MONOCYTE # 0.7 10^3/ul (0.3-0.9); MONOCYTES % 8.2 % (0.0-11.0); NEUTROPHIL # 5.2 10^3/ul (1.6-7.5); NEUTROPHILS % 62.8 % (39.0-77.0); PLATELET COUNT 465 10^3/UL (140-415); RED BLOOD COUNT 3.18 10^6/ul (4.20-5.40); RED CELL DISTRIBUTION WIDTH 21.5 % (11.5-14.5)
[2018-08-26 08:27] LABS: HEMOGLOBIN A1C 5.7 % (0-5.9)
[2018-08-26 08:28] LABS: IRON 25 ug/dl (35-150)
[2018-08-26 08:30] LABS: ANION GAP 11 (5-13); BLOOD UREA NITROGEN 14 mg/dl (7-20); CALCIUM 8.7 mg/dl (8.4-10.2); CARBON DIOXIDE 23 mmol/L (21-31); CHLORIDE 107 mmol/L (97-110); CREATININE 0.84 mg/dl (0.44-1.00); Estimated GFR > 60 mL/min (>60); GLUCOSE 93 mg/dl (70-220); MAGNESIUM 1.7 mg/dl (1.7-2.5); POTASSIUM 3.9 mmol/L (3.5-5.1); SODIUM 141 mmol/L (135-144)
[2018-08-26 08:38] LABS: % IRON SATURATION 6 % SAT (22-52); TOTAL IRON BINDING CAPACITY 420 ug/dl (241-421)
== END 2018-08-26 13:34 | disposition home or self-care (01) | DRG 812 ==
LOC: E/R 13:33 → PP2 17:25
PROC: 30230N1 Transfusion of Nonautologous Red Blood Cells into Peripheral Vein, Open Approach (ICD-10-PCS; principal; 2018-08-25)
DX: D50.0 Iron deficiency anemia secondary to blood loss (chronic) (principal); Z68.41 Body mass index [BMI] 40.0-44.9, adult; D25.9 Leiomyoma of uterus, unspecified; E66.01 Morbid (severe) obesity due to excess calories
CPT/HCPCS: 36430; 80048; 83036; 83540; 83735; 84100; 85025; 86644; 86850; 86900; 86901; 86920; 99285-25

== ENCOUNTER 2018-10-19 01:25 | Inpatient (IN) | payer OTHER ==
[2018-10-19 03:12] LABS: ABNORMAL IP MESSAGE 1; HEMATOCRIT 18.6 % (37.0-47.0); MEAN CORPUSCULAR HEMOGLOBIN 21.4 pg (29.0-33.0); MEAN CORPUSCULAR HGB CONC 28.5 g/dl (32.0-37.0); MEAN PLATELET VOLUME 10.5 fl (7.4-10.4); NUCLEATED RED BLOOD CELLS% 0.2 /100WBC (0.0-0.0); PLATELET COUNT 444 10^3/UL (140-415); RED BLOOD COUNT 2.48 10^6/ul (4.20-5.40); RED CELL DISTRIBUTION WIDTH 21.4 % (11.5-14.5); RETICULOCYTE COUNT # 0.046 X10^6 (0.020-0.110); RETICULOCYTE COUNT % 1.9 % (0.5-1.5); RETICULOCYTE RBC 2.48
[2018-10-19 03:12] LABS: WHITE BLOOD COUNT 8.9 10^3/ul (4.8-10.8)
[2018-10-19 03:16] LABS: POSITIVE DIFF @See below
[2018-10-19 03:19] LABS: HEMOGLOBIN 5.3 g/dl (12.0-16.0)
[2018-10-19 03:20] LABS: ADD MAN DIFF? YES
[2018-10-19] MEDS: KETOROLAC 30 MG INJ IV (03:32)
[2018-10-19] MEDS: SOD CHLORIDE 0.9% 500 ML IV (03:33)
[2018-10-19 04:18] LABS: ACANTHOCYTES 1+ (0-0); ANISOCYTOSIS 2+ (0-0); EOSINOPHILS % (M) 3 % (0-7); GIANT THROMBO% (M) 6 % (0-0); HYPOCHROMASIA 2+ (0-0); LYMPHOCYTES #M 2.3 10^3/ul (0.8-2.9); LYMPHOCYTES % (M) 26 % (15-51); MICROCYTOSIS 2+ (0-0); MONOCYTE #M 0.2 10^3/ul (0.3-0.9); MONOCYTES % (M) 3 % (0-11); OVALOCYTES 1+ (0-0); PLATELET ESTIMATE NORMAL; POIKILOCYTOSIS 1+ (0-0); POLYCHROMASIA 2+ (0-0); SEGMENTED NEUTROPHILS (M) % 68 % (39-77)
[2018-10-19 04:29] LABS: ALANINE AMINOTRANSFERASE 19 IU/L (13-69); ALBUMIN/GLOBULIN RATIO 1.21; ALKALINE PHOSPHATASE 53 IU/L (42-121); ANION GAP 8 (5-13); ASPARTATE AMINO TRANSFERASE 19 IU/L (15-46); BLOOD UREA NITROGEN 10 mg/dl (7-20); CALCIUM 8.9 mg/dl (8.4-10.2); CARBON DIOXIDE 26 mmol/L (21-31); CHLORIDE 110 mmol/L (97-110); CREATININE 0.91 mg/dl (0.44-1.00); Estimated GFR > 60 mL/min (>60); GLUCOSE 103 mg/dl (70-220); LACTATE DEHYDROGENASE 305 IU/L (313-618); POTASSIUM 3.4 mmol/L (3.5-5.1); SODIUM 144 mmol/L (135-144); TOTAL PROTEIN 7.3 g/dl (6.1-8.1)
[2018-10-19] MEDS ORDERED: ACETAMINOPHEN 325 MG TAB PO (06:00)
[2018-10-19] MEDS ORDERED: NACL 0.9% 3 ML SYG IV (06:00)
[2018-10-19] MEDS: PANTOPRAZOLE 40 MG INJ IV (09:28)
[2018-10-19] MEDS: ONDANSETRON 4 MG INJ IV (09:31)
[2018-10-19 09:42] LABS: IMMEDIATE SPIN CROSSMATCH 1 7
[2018-10-19] MEDS ORDERED: hydrALAzine 20 MG INJ IV (10:30)
[2018-10-19] MEDS: HYDROCODONE/APAP (5/325) TAB PO ×2 (10:58→23:45)
[2018-10-19] MEDS: ALBUTEROL/IPRATROPIUM (NEB) 3 ML AMP HHN ×2 (18:07→23:49)
[2018-10-19] MEDS: PSEUDOEPHEDRINE 30 MG TAB PO (18:18)
[2018-10-19 18:54] LABS: ADD MAN DIFF? NO
[2018-10-19 18:58] LABS: WHITE BLOOD COUNT 10.2 10^3/ul (4.8-10.8)
[2018-10-19 18:58] LABS: BASOPHIL # 0.1 10^3/ul (0.0-0.1); BASOPHILS % 0.6 % (0.0-2.0); EOSINOPHILS # 0.4 10^3/ul (0.0-0.5); EOSINOPHILS % 3.5 % (0.0-7.0); HEMATOCRIT 25.3 % (37.0-47.0); HEMOGLOBIN 7.6 g/dl (12.0-16.0); LYMPHOCYTES # 2.7 10^3/ul (0.8-2.9); LYMPHOCYTES % 26.4 % (15.0-51.0); MEAN CORPUSCULAR HEMOGLOBIN 23.5 pg (29.0-33.0); MEAN CORPUSCULAR VOLUME 78.3 fl (82.0-101.0); MEAN PLATELET VOLUME 10.7 fl (7.4-10.4); MONOCYTE # 0.6 10^3/ul (0.3-0.9); MONOCYTES % 6.1 % (0.0-11.0); NEUTROPHIL # 6.4 10^3/ul (1.6-7.5); NEUTROPHILS % 62.8 % (39.0-77.0); NUCLEATED RED BLOOD CELLS # 0.1 10^3/ul (0.0-0.0); NUCLEATED RED BLOOD CELLS% 0.7 /100WBC (0.0-0.0); PLATELET COUNT 448 10^3/UL (140-415); RED BLOOD COUNT 3.23 10^6/ul (4.20-5.40); RED CELL DISTRIBUTION WIDTH 20.7 % (11.5-14.5)
[2018-10-20] MEDS: PANTOPRAZOLE 40 MG INJ IV ×2 (06:00→08:49)
[2018-10-20] MEDS: DIPHENHYDRAMINE 25 MG CAP PO (08:49)
[2018-10-20] MEDS: AMLODIPINE 2.5 MG TAB PO (13:07)
[2018-10-20] MEDS: POTASSIUM CHLORIDE (SR) 20 MEQ TAB PO (13:07)
[2018-10-20] MEDS: DOCUSATE SODIUM 100 MG CAP PO ×2 (13:07→20:13)
[2018-10-20] MEDS ORDERED: CIPROFLOXACIN 0.3% 2.5 ML OPH BOTH EYES (14:00)
[2018-10-20 14:43] LABS: ADD MAN DIFF? NO
[2018-10-20 14:46] LABS: BASOPHIL # 0.1 10^3/ul (0.0-0.1); BASOPHILS % 0.5 % (0.0-2.0); EOSINOPHILS # 0.3 10^3/ul (0.0-0.5); HEMATOCRIT 25.3 % (37.0-47.0); HEMOGLOBIN 7.7 g/dl (12.0-16.0); LYMPHOCYTES # 1.6 10^3/ul (0.8-2.9); LYMPHOCYTES % 14.6 % (15.0-51.0); MEAN CORPUSCULAR HGB CONC 30.4 g/dl (32.0-37.0); MEAN CORPUSCULAR VOLUME 78.8 fl (82.0-101.0); MEAN PLATELET VOLUME 10.7 fl (7.4-10.4); MONOCYTE # 0.9 10^3/ul (0.3-0.9); MONOCYTES % 8.1 % (0.0-11.0); NEUTROPHILS % 73.2 % (39.0-77.0); NUCLEATED RED BLOOD CELLS # 0.1 10^3/ul (0.0-0.0); NUCLEATED RED BLOOD CELLS% 0.5 /100WBC (0.0-0.0); PLATELET COUNT 503 10^3/UL (140-415); RED BLOOD COUNT 3.21 10^6/ul (4.20-5.40); RED CELL DISTRIBUTION WIDTH 21.1 % (11.5-14.5)
[2018-10-20 15:03] LABS: ALANINE AMINOTRANSFERASE 20 IU/L (13-69); ALBUMIN 3.8 g/dl (3.3-4.9); ALBUMIN/GLOBULIN RATIO 1.22; ALKALINE PHOSPHATASE 42 IU/L (42-121); ANION GAP 10 (5-13); ASPARTATE AMINO TRANSFERASE 19 IU/L (15-46); BILIRUBIN,INDIRECT 0.3 mg/dl (0-1.1); BILIRUBIN,TOTAL 0.3 mg/dl (0.2-1.3); BLOOD UREA NITROGEN 9 mg/dl (7-20); CALCIUM 8.8 mg/dl (8.4-10.2); CARBON DIOXIDE 25 mmol/L (21-31); CHLORIDE 108 mmol/L (97-110); CREATININE 0.85 mg/dl (0.44-1.00); Estimated GFR > 60 mL/min (>60); GLUCOSE 98 mg/dl (70-220); POTASSIUM 3.6 mmol/L (3.5-5.1); SODIUM 143 mmol/L (135-144); TOTAL PROTEIN 6.9 g/dl (6.1-8.1)
[2018-10-20] MEDS: CIPROFLOXACIN 0.3% 5 ML OPH BOTH EYES ×2 (15:33→22:08)
[2018-10-20] MEDS: SOD FERRIC GLUC COMPLX 125 MG in SOD CHLORIDE 0.9% 100 ML IVPB (15:33)
[2018-10-20] MEDS: PE/SHARK OIL/MO/PETROL 30 GM OINT PR ×2 (15:34→20:15)
[2018-10-20] MEDS: SOD CHLORIDE 0.9% 250 ML IV* (20:00)
[2018-10-20] MEDS: HYDROCODONE/APAP (5/325) TAB PO (21:10)
[2018-10-21] MEDS: PANTOPRAZOLE 40 MG INJ IV (05:27)
[2018-10-21] MEDS: PE/SHARK OIL/MO/PETROL 30 GM OINT PR ×2 (09:00→22:00)
[2018-10-21] MEDS: DOCUSATE SODIUM 100 MG CAP PO ×2 (10:16→21:16)
[2018-10-21] MEDS: CIPROFLOXACIN 0.3% 5 ML OPH BOTH EYES ×2 (10:17→21:17)
[2018-10-21] MEDS: AMLODIPINE 2.5 MG TAB PO (10:18)
[2018-10-21] MEDS: HYDROCODONE/APAP (5/325) TAB PO ×2 (11:20→22:01)
[2018-10-21 12:10] LABS: ADD MAN DIFF? NO
[2018-10-21 12:12] LABS: ABNORMAL IP MESSAGE 1; BASOPHIL # 0.1 10^3/ul (0.0-0.1); BASOPHILS % 0.8 % (0.0-2.0); EOSINOPHILS # 0.4 10^3/ul (0.0-0.5); EOSINOPHILS % 4.6 % (0.0-7.0); HEMATOCRIT 27.4 % (37.0-47.0); HEMOGLOBIN 8.2 g/dl (12.0-16.0); LYMPHOCYTES # 1.4 10^3/ul (0.8-2.9); LYMPHOCYTES % 15.3 % (15.0-51.0); MEAN CORPUSCULAR HEMOGLOBIN 23.4 pg (29.0-33.0); MEAN CORPUSCULAR HGB CONC 29.9 g/dl (32.0-37.0); MEAN CORPUSCULAR VOLUME 78.3 fl (82.0-101.0); MEAN PLATELET VOLUME 9.9 fl (7.4-10.4); MONOCYTE # 0.9 10^3/ul (0.3-0.9); MONOCYTES % 9.5 % (0.0-11.0); NEUTROPHIL # 6.2 10^3/ul (1.6-7.5); NEUTROPHILS % 69.1 % (39.0-77.0); NUCLEATED RED BLOOD CELLS% 0.3 /100WBC (0.0-0.0); PLATELET COUNT 531 10^3/UL (140-415); RED CELL DISTRIBUTION WIDTH 22.1 % (11.5-14.5)
[2018-10-21 12:17] LABS: POSITIVE DIFF @See below
[2018-10-21 12:32] LABS: ANION GAP 12 (5-13); BLOOD UREA NITROGEN 7 mg/dl (7-20); CALCIUM 9.2 mg/dl (8.4-10.2); CARBON DIOXIDE 23 mmol/L (21-31); CHLORIDE 109 mmol/L (97-110); CREATININE 0.74 mg/dl (0.44-1.00); Estimated GFR > 60 mL/min (>60); GLUCOSE 108 mg/dl (70-220); POTASSIUM 3.5 mmol/L (3.5-5.1); SODIUM 144 mmol/L (135-144)
[2018-10-21] MEDS: SOD FERRIC GLUC COMPLX 125 MG in SOD CHLORIDE 0.9% 100 ML IVPB (14:05)
[2018-10-21] MEDS: SENNA TAB PO ×2 (15:03→21:16)
[2018-10-22] MEDS: PANTOPRAZOLE 40 MG INJ IV (05:06)
[2018-10-22] MEDS: HYDROCODONE/APAP (5/325) TAB PO (09:05)
[2018-10-22] MEDS: SENNA TAB PO (09:05)
[2018-10-22] MEDS: DOCUSATE SODIUM 100 MG CAP PO (09:05)
[2018-10-22] MEDS: AMLODIPINE 2.5 MG TAB PO (09:06)
[2018-10-22] MEDS: CIPROFLOXACIN 0.3% 5 ML OPH BOTH EYES (09:22)
[2018-10-22] MEDS: PE/SHARK OIL/MO/PETROL 30 GM OINT PR (09:22)
[2018-10-22] MEDS: GUAIFENESIN 20 MG/ML 5ML CUP PO (10:05)
[2018-10-22 10:35] LABS: ADD MAN DIFF? NO
[2018-10-22 10:38] LABS: WHITE BLOOD COUNT 8.9 10^3/ul (4.8-10.8)
[2018-10-22 10:38] LABS: ABNORMAL IP MESSAGE 1; BASOPHIL # 0.1 10^3/ul (0.0-0.1); BASOPHILS % 0.7 % (0.0-2.0); EOSINOPHILS # 0.5 10^3/ul (0.0-0.5); EOSINOPHILS % 5.5 % (0.0-7.0); HEMATOCRIT 29.5 % (37.0-47.0); HEMOGLOBIN 8.8 g/dl (12.0-16.0); LYMPHOCYTES # 1.6 10^3/ul (0.8-2.9); LYMPHOCYTES % 17.5 % (15.0-51.0); MEAN CORPUSCULAR HEMOGLOBIN 23.7 pg (29.0-33.0); MEAN CORPUSCULAR HGB CONC 29.8 g/dl (32.0-37.0); MEAN CORPUSCULAR VOLUME 79.5 fl (82.0-101.0); MEAN PLATELET VOLUME 9.6 fl (7.4-10.4); MONOCYTE # 0.7 10^3/ul (0.3-0.9); MONOCYTES % 8.3 % (0.0-11.0); NEUTROPHILS % 66.9 % (39.0-77.0); NUCLEATED RED BLOOD CELLS # 0.1 10^3/ul (0.0-0.0); NUCLEATED RED BLOOD CELLS% 0.8 /100WBC (0.0-0.0); PLATELET COUNT 527 10^3/UL (140-415); RED BLOOD COUNT 3.71 10^6/ul (4.20-5.40); RED CELL DISTRIBUTION WIDTH 22.8 % (11.5-14.5)
[2018-10-22 10:43] LABS: POSITIVE DIFF @See below
[2018-10-22] MEDS: SOD FERRIC GLUC COMPLX 125 MG in SOD CHLORIDE 0.9% 100 ML IVPB (12:34)
== END 2018-10-22 14:58 | disposition home or self-care (01) | DRG 812 ==
LOC: E/R 01:25 → MS1 10-21 18:24 → ICU 03:36 → TEL 14:57
PROC: 30233N1 Transfusion of Nonautologous Red Blood Cells into Peripheral Vein, Percutaneous Approach (ICD-10-PCS; principal; 2018-10-19)
DX: D50.0 Iron deficiency anemia secondary to blood loss (chronic) (principal); J45.909 Unspecified asthma, uncomplicated; I10 Essential (primary) hypertension; K29.70 Gastritis, unspecified, without bleeding; H57.9 Unspecified disorder of eye and adnexa; K64.8 Other hemorrhoids; F17.210 Nicotine dependence, cigarettes, uncomplicated; K64.4 Residual hemorrhoidal skin tags; M25.531 Pain in right wrist; M79.641 Pain in right hand; Z88.0 Allergy status to penicillin; Z90.49 Acquired absence of other specified parts of digestive tract
CPT/HCPCS: 36430; 73130-RT; 74018; 80048; 80053; 81025; 83615; 84703; 85025; 85045; 86850; 86900; 86901; 86920; 87081; 87400; 94640; 94664; 96374; 99285-25

== ENCOUNTER 2018-12-20 16:48 | Emergency (ER) | payer OTHER ==
[2018-12-20 18:51] LABS: URINE BLOOD (Dip) POC Negative (NEGATIVE); URINE GLUCOSE (Dip) POC Negative (NEGATIVE); URINE KETONES (Dip) POC Trace (NEGATIVE); URINE LEUKOCYTE EST (Dip) POC Negative (NEGATIVE); URINE NITRITE (Dip) POC Negative (NEGATIVE); URINE TOTAL PROTEIN POC Trace (NEGATIVE)
[2018-12-20 18:51] LABS: URINE PH (Dip) POC 5.5 (5.0-8.5)
[2018-12-20] MEDS: SOD CHLORIDE 0.9% 0 ML IV (19:15)
[2018-12-20 19:23] LABS: ADD MAN DIFF? NO
[2018-12-20 19:28] LABS: ABNORMAL IP MESSAGE 1; HEMATOCRIT 22.6 % (37.0-47.0); MEAN CORPUSCULAR HEMOGLOBIN 21.4 pg (29.0-33.0); MEAN CORPUSCULAR HGB CONC 27.9 g/dl (32.0-37.0); MEAN CORPUSCULAR VOLUME 76.6 fl (82.0-101.0); MEAN PLATELET VOLUME 9.7 fl (7.4-10.4); NUCLEATED RED BLOOD CELLS% 0.3 /100WBC (0.0-0.0); PLATELET COUNT 551 10^3/UL (140-415); RED BLOOD COUNT 2.95 10^6/ul (4.20-5.40); RED CELL DISTRIBUTION WIDTH 22.7 % (11.5-14.5)
[2018-12-20 19:35] LABS: HEMOGLOBIN 6.3 g/dl (12.0-16.0); POSITIVE DIFF @See below
[2018-12-20 19:36] LABS: PATH REVIEW? YES
[2018-12-20 19:45] LABS: ALANINE AMINOTRANSFERASE 14 IU/L (13-69); ALBUMIN 4.5 g/dl (3.3-4.9); ALBUMIN/GLOBULIN RATIO 1.45; ALKALINE PHOSPHATASE 42 IU/L (42-121); ANION GAP 12 (5-13); ASPARTATE AMINO TRANSFERASE 39 IU/L (15-46); BLOOD UREA NITROGEN 12 mg/dl (7-20); CALCIUM 9.7 mg/dl (8.4-10.2); CARBON DIOXIDE 23 mmol/L (21-31); CHLORIDE 107 mmol/L (97-110); CREATININE 0.74 mg/dl (0.44-1.00); Estimated GFR > 60 mL/min (>60); GLUCOSE 115 mg/dl (70-220); LIPASE 145 U/L (23-300); POTASSIUM 4.3 mmol/L (3.5-5.1); SODIUM 142 mmol/L (135-144); TOTAL PROTEIN 7.6 g/dl (6.1-8.1)
[2018-12-20] MEDS: LIDOCAINE/MYLANTA 40 ML BTL PO (20:07)
[2018-12-20] MEDS: FAMOTIDINE 20 MG TAB PO (20:07)
[2018-12-20] MEDS: SOD CHLORIDE 0.9% 500 ML IV (20:07)
[2018-12-20] MEDS: METOCLOPRAMIDE 10 MG INJ IV (20:07)
[2018-12-20 20:17] LABS: ANISOCYTOSIS 2+ (0-0); GIANT THROMBO% (M) 3 % (0-0); HYPOCHROMASIA 2+ (0-0); LYMPHOCYTES #M 2.4 10^3/ul (0.8-2.9); LYMPHOCYTES % (M) 24 % (15-51); MICROCYTOSIS 1+ (0-0); MONOCYTE #M 1.2 10^3/ul (0.3-0.9); MONOCYTES % (M) 12 % (0-11); PLATELET MORPHOLOGY COMMENT @See below; POIKILOCYTOSIS 1+ (0-0); POLYCHROMASIA 2+ (0-0); SCHISTOCYTES 1+ (0-0); SEGMENTED NEUTROPHILS (M) % 64 % (39-77); SMUDGE%M 3 % (0-0)
[2018-12-20 20:55] LABS: IMMEDIATE SPIN CROSSMATCH 1 2
== END 2018-12-20 23:15 | disposition home or self-care (01) ==
LOC: E/R 23:15
DX: D59.1 Other autoimmune hemolytic anemias (principal); K29.50 Unspecified chronic gastritis without bleeding; E66.01 Morbid (severe) obesity due to excess calories; Z68.39 Body mass index [BMI] 39.0-39.9, adult
CPT/HCPCS: 36430; 80053; 81003; 81025; 83690; 85025; 86850; 86900; 86901; 86920; 96374; 99285-25

== ENCOUNTER 2019-02-10 04:35 | Emergency (ER) | payer OTHER ==
[2019-02-10 07:24] LABS: ADD MAN DIFF? NO
[2019-02-10 07:28] LABS: ABNORMAL IP MESSAGE 1; BASOPHIL # 0.1 10^3/ul (0.0-0.1); BASOPHILS % 0.8 % (0.0-2.0); EOSINOPHILS # 0.3 10^3/ul (0.0-0.5); EOSINOPHILS % 3.6 % (0.0-7.0); HEMATOCRIT 26.7 % (37.0-47.0); HEMOGLOBIN 7.5 g/dl (12.0-16.0); LYMPHOCYTES # 2.2 10^3/ul (0.8-2.9); LYMPHOCYTES % 26.6 % (15.0-51.0); MEAN CORPUSCULAR HEMOGLOBIN 23.3 pg (29.0-33.0); MEAN CORPUSCULAR HGB CONC 28.1 g/dl (32.0-37.0); MEAN CORPUSCULAR VOLUME 82.9 fl (82.0-101.0); MONOCYTE # 0.7 10^3/ul (0.3-0.9); MONOCYTES % 8.4 % (0.0-11.0); NEUTROPHILS % 60.4 % (39.0-77.0); NUCLEATED RED BLOOD CELLS% 0.4 /100WBC (0.0-0.0); PLATELET COUNT 730 10^3/UL (140-415); RED BLOOD COUNT 3.22 10^6/ul (4.20-5.40); RED CELL DISTRIBUTION WIDTH 23.7 % (11.5-14.5)
[2019-02-10 07:28] LABS: WHITE BLOOD COUNT 8.3 10^3/ul (4.8-10.8)
[2019-02-10 07:34] LABS: ADD UMIC NO; UR ASCORBIC ACID NEGATIVE (NEGATIVE); UR BILIRUBIN (Dip) NEGATIVE (NEGATIVE); UR BLOOD (Dip) NEGATIVE (NEGATIVE); UR CLARITY CLEAR (CLEAR); UR COLOR YELLOW (YELLOW); UR GLUCOSE (Dip) NEGATIVE (NEGATIVE); UR KETONES (Dip) TRACE mg/dL (NEGATIVE); UR LEUKOCYTE ESTERASE (Dip) NEGATIVE Leu/ul (NEGATIVE); UR NITRITE (Dip) NEGATIVE (NEGATIVE); UR SPECIFIC GRAVITY (Dip) 1.027 (1.003-1.030); UR TOTAL PROTEIN (Dip) NEGATIVE (NEGATIVE); UR UROBILINOGEN (Dip) NEGATIVE (NEGATIVE)
[2019-02-10 07:35] LABS: POSITIVE DIFF @See below
== END 2019-02-10 10:00 | disposition left against medical advice (07) ==
LOC: FTE 04:35
DX: D64.9 Anemia, unspecified (principal); E66.01 Morbid (severe) obesity due to excess calories; F17.210 Nicotine dependence, cigarettes, uncomplicated; Z68.41 Body mass index [BMI] 40.0-44.9, adult; Z87.42 Personal history of other diseases of the female genital tract
CPT/HCPCS: 76856; 81003; 81025; 85025; 99284-25

== ENCOUNTER 2019-04-02 07:28 | Inpatient (IN) | payer OTHER ==
[2019-04-02] MEDS: BELLADONNA/PHENOBARBITAL TAB PO (08:12)
[2019-04-02] MEDS: LIDOCAINE/MYLANTA 40 ML BTL PO (08:12)
[2019-04-02 08:19] LABS: ADD MAN DIFF? NO
[2019-04-02 08:22] LABS: WHITE BLOOD COUNT 9.3 10^3/ul (4.8-10.8)
[2019-04-02 08:22] LABS: ABNORMAL IP MESSAGE 1; BASOPHIL # 0.1 10^3/ul (0.0-0.1); BASOPHILS % 0.8 % (0.0-2.0); EOSINOPHILS # 0.3 10^3/ul (0.0-0.5); EOSINOPHILS % 3.5 % (0.0-7.0); HEMATOCRIT 21.8 % (37.0-47.0); LYMPHOCYTES # 2.3 10^3/ul (0.8-2.9); LYMPHOCYTES % 24.9 % (15.0-51.0); MEAN CORPUSCULAR HEMOGLOBIN 22.2 pg (29.0-33.0); MEAN CORPUSCULAR HGB CONC 28.4 g/dl (32.0-37.0); MEAN CORPUSCULAR VOLUME 78.1 fl (82.0-101.0); MEAN PLATELET VOLUME 8.9 fl (7.4-10.4); MONOCYTE # 0.8 10^3/ul (0.3-0.9); MONOCYTES % 8.9 % (0.0-11.0); NEUTROPHIL # 5.6 10^3/ul (1.6-7.5); NEUTROPHILS % 60.6 % (39.0-77.0); NUCLEATED RED BLOOD CELLS # 0.1 10^3/ul (0.0-0.0); NUCLEATED RED BLOOD CELLS% 0.6 /100WBC (0.0-0.0); PLATELET COUNT 584 10^3/UL (140-415); RED BLOOD COUNT 2.79 10^6/ul (4.20-5.40); RED CELL DISTRIBUTION WIDTH 20.2 % (11.5-14.5)
[2019-04-02 08:24] LABS: ADD UMIC YES; UR ASCORBIC ACID NEGATIVE (NEGATIVE); UR BACTERIA FEW /HPF (NONE SEEN); UR BILIRUBIN (Dip) NEGATIVE (NEGATIVE); UR BLOOD (Dip) 2+ mg/dL (NEGATIVE); UR CLARITY SLIGHTLY CLOUDY (CLEAR); UR COLOR YELLOW (YELLOW); UR GLUCOSE (Dip) NEGATIVE (NEGATIVE); UR KETONES (Dip) NEGATIVE (NEGATIVE); UR LEUKOCYTE ESTERASE (Dip) NEGATIVE Leu/ul (NEGATIVE); UR NITRITE (Dip) NEGATIVE (NEGATIVE); UR RBC 2 /HPF (0-5); UR SPECIFIC GRAVITY (Dip) 1.017 (1.003-1.030); UR SQUAMOUS EPITHELIAL CELL FEW /HPF (FEW); UR TOTAL PROTEIN (Dip) NEGATIVE (NEGATIVE); UR UROBILINOGEN (Dip) NEGATIVE (NEGATIVE); UR WBC 1 /HPF (0-5)
[2019-04-02 08:36] LABS: HEMOGLOBIN 6.2 g/dl (12.0-16.0); POSITIVE DIFF @See below
[2019-04-02] MEDS: SOD CHLORIDE 0.9% 0 ML IV (09:29)
[2019-04-02 09:45] LABS: ANISOCYTOSIS 1+ (0-0); BAND NEUTROPHILS #M 0.1 10^3/ul (0.0-0.6); BAND NEUTROPHILS % (M) 2 % (0-4); EOSINOPHILS % (M) 5 % (0-7); ERYTHROBLAST% (NRBC) (M) 2 % (0-0); GIANT THROMBO% (M) 1 % (0-0); HYPOCHROMASIA 3+ (0-0); LYMPHOCYTES #M 1.3 10^3/ul (0.8-2.9); LYMPHOCYTES % (M) 15 % (15-51); MICROCYTOSIS 1+ (0-0); MONOCYTE #M 0.2 10^3/ul (0.3-0.9); MONOCYTES % (M) 3 % (0-11); OVALOCYTES 1+ (0-0); PLATELET ESTIMATE INCREASED; POIKILOCYTOSIS 1+ (0-0); POLYCHROMASIA 1+ (0-0); SEGMENTED NEUTROPHILS (M) % 75 % (39-77); SMUDGE%M 13 % (0-0)
[2019-04-02] MEDS: PANTOPRAZOLE 40 MG INJ IV (10:00)
[2019-04-02 10:28] LABS: ALANINE AMINOTRANSFERASE 11 IU/L (13-69); ALBUMIN 4.2 g/dl (3.3-4.9); ALBUMIN/GLOBULIN RATIO 1.27; ALKALINE PHOSPHATASE 48 IU/L (42-121); ANION GAP 9 (5-13); ASPARTATE AMINO TRANSFERASE 18 IU/L (15-46); BILIRUBIN,INDIRECT 0.2 mg/dl (0-1.1); BILIRUBIN,TOTAL 0.2 mg/dl (0.2-1.3); BLOOD UREA NITROGEN 11 mg/dl (7-20); CALCIUM 8.8 mg/dl (8.4-10.2); CARBON DIOXIDE 24 mmol/L (21-31); CHLORIDE 110 mmol/L (97-110); CREATININE 0.87 mg/dl (0.44-1.00); Estimated GFR > 60 mL/min (>60); GLUCOSE 92 mg/dl (70-220); LIPASE 91 U/L (23-300); POTASSIUM 3.8 mmol/L (3.5-5.1); SODIUM 143 mmol/L (135-144); TOTAL PROTEIN 7.5 g/dl (6.1-8.1)
[2019-04-02] MEDS ORDERED: ONDANSETRON 4 MG INJ IV (10:30)
[2019-04-02] MEDS ORDERED: DOCUSATE SODIUM 100 MG CAP PO (10:30)
[2019-04-02] MEDS ORDERED: NACL 0.9% 3 ML SYG IV (10:30)
[2019-04-02] MEDS ORDERED: ACETAMINOPHEN 650 MG SUPP PR (10:30)
[2019-04-02] MEDS ORDERED: ACETAMINOPHEN 325 MG TAB PO (10:30)
[2019-04-02 10:36] LABS: IRON 15 ug/dl (35-150)
[2019-04-02 10:45] LABS: OCCULT BLOOD STOOL NEGATIVE (NEGATIVE)
[2019-04-02 10:45] LABS: % IRON SATURATION 4 % SAT (22-52); TOTAL IRON BINDING CAPACITY 421 ug/dl (241-421)
[2019-04-02] MEDS: ONDANSETRON 4 MG INJ IV (11:15)
[2019-04-02] MEDS: FAMOTIDINE 20 MG INJ IV ×2 (11:16→22:24)
[2019-04-02 11:50] LABS: INR 1.01; PROTIME 13.4 Sec (11.9-14.9)
[2019-04-02 11:56] LABS: IMMEDIATE SPIN CROSSMATCH 1 1
[2019-04-02] MEDS: morphine 2 MG INJ IV ×3 (12:03→22:31)
[2019-04-02] MEDS: HYDROCODONE/APAP (5/325) TAB PO (13:26)
[2019-04-02] MEDS: FERROUS SULFATE (EC) 325 MG TAB PO ×2 (13:26→22:24)
[2019-04-02] MEDS: hydrALAzine 20 MG INJ IV (14:19)
[2019-04-02] MEDS: NS + KCL 20 MEQ 1,000 ML IV ×2 (14:41→22:49)
[2019-04-02 16:39] LABS: HEMATOCRIT 23.7 % (37.0-47.0)
[2019-04-02] MEDS: SUCRALFATE 1 GM TAB PO ×2 (16:59→22:24)
[2019-04-02] MEDS: ACETAMINOPHEN 325 MG TAB PO (22:31)
[2019-04-03] MEDS: morphine 2 MG INJ IV ×3 (06:43→15:05)
[2019-04-03] MEDS: FAMOTIDINE 20 MG INJ IV (09:16)
[2019-04-03] MEDS: FERROUS SULFATE (EC) 325 MG TAB PO ×3 (09:16→22:11)
[2019-04-03] MEDS: SUCRALFATE 1 GM TAB PO ×4 (09:16→22:11)
[2019-04-03] MEDS: MAGNESIUM HYDROXIDE 30ML CUP PO (11:06)
[2019-04-03] MEDS: ACETAMINOPHEN 325 MG TAB PO (11:10)
[2019-04-03] MEDS: NS + KCL 20 MEQ 1,000 ML IV ×2 (11:19→22:10)
[2019-04-03] MEDS: SOD FERRIC GLUC COMPLX 125 MG in SOD CHLORIDE 0.9% 100 ML IVPB (13:36)
[2019-04-03] MEDS: ONDANSETRON 4 MG INJ IV (13:55)
[2019-04-03 15:30] LABS: ADD MAN DIFF? NO
[2019-04-03 15:37] LABS: PLATELET COUNT 604 10^3/UL (140-415)
[2019-04-03 15:49] LABS: BASOPHIL # 0.1 10^3/ul (0.0-0.1); BASOPHILS % 0.7 % (0.0-2.0); EOSINOPHILS # 0.3 10^3/ul (0.0-0.5); EOSINOPHILS % 3.1 % (0.0-7.0); HEMATOCRIT 24.8 % (37.0-47.0); HEMOGLOBIN 7.2 g/dl (12.0-16.0); LYMPHOCYTES # 2.3 10^3/ul (0.8-2.9); LYMPHOCYTES % 22.2 % (15.0-51.0); MEAN CORPUSCULAR HEMOGLOBIN 23.2 pg (29.0-33.0); MEAN PLATELET VOLUME 10.2 fl (7.4-10.4); MONOCYTE # 0.8 10^3/ul (0.3-0.9); MONOCYTES % 7.7 % (0.0-11.0); NEUTROPHIL # 6.6 10^3/ul (1.6-7.5); NEUTROPHILS % 64.4 % (39.0-77.0); NUCLEATED RED BLOOD CELLS # 0.1 10^3/ul (0.0-0.0); NUCLEATED RED BLOOD CELLS% 0.8 /100WBC (0.0-0.0); PLATELET COUNT 611 10^3/UL (140-415); RED CELL DISTRIBUTION WIDTH 21.3 % (11.5-14.5)
[2019-04-03 15:49] LABS: WHITE BLOOD COUNT 10.2 10^3/ul (4.8-10.8)
[2019-04-03 15:54] LABS: INR 1.08; PARTIAL THROMBOPLASTIN TIME 36.4 Sec (23.0-35.0); PROTIME 14.1 Sec (11.9-14.9); PT RATIO 1.1
[2019-04-03 15:58] LABS: THROMBIN TIME 16.1 SEC (13.8-19.1)
[2019-04-03 16:00] LABS: HEMOGLOBIN A1C 5.5 % (0-5.9)
[2019-04-03 16:00] LABS: ALANINE AMINOTRANSFERASE 21 IU/L (13-69); ALBUMIN/GLOBULIN RATIO 1.37; ALKALINE PHOSPHATASE 50 IU/L (42-121); ANION GAP 6 (5-13); ASPARTATE AMINO TRANSFERASE 22 IU/L (15-46); BILIRUBIN,INDIRECT 0.3 mg/dl (0-1.1); BILIRUBIN,TOTAL 0.3 mg/dl (0.2-1.3); BLOOD UREA NITROGEN 8 mg/dl (7-20); CALCIUM 8.8 mg/dl (8.4-10.2); CARBON DIOXIDE 24 mmol/L (21-31); CHLORIDE 109 mmol/L (97-110); CHOL/HDL RATIO 3.9 RATIO; CHOLESTEROL 151 mg/dl (100-200); CREATININE 0.84 mg/dl (0.44-1.00); Estimated GFR > 60 mL/min (>60); GLUCOSE 88 mg/dl (70-220); HDL CHOLESTEROL 38 mg/dl (34-82); LDL CHOLESTEROL,CALCULATED 102 mg/dl; MAGNESIUM 2.2 mg/dl (1.7-2.5); POTASSIUM 3.8 mmol/L (3.5-5.1); SODIUM 139 mmol/L (135-144); TOTAL PROTEIN 6.9 g/dl (6.1-8.1); TRIGLYCERIDES 57 mg/dl (0-149)
[2019-04-03 17:27] LABS: THYROID STIMULATING HORMONE 0.962 MIU/L (0.465-4.680)
[2019-04-03] MEDS: PROPOFOL 40 ML (19:00)
[2019-04-03] MEDS: LIDOCAINE 100 MG SYRINGE (19:00)
[2019-04-03 19:51] LABS: FREE THYROXINE INDEX (Calc) 2.55 ug/ml (0.65-3.89); T4 (THYROXINE) 7.5 ug/dl (5.5-11.0)
[2019-04-03] MEDS: FAMOTIDINE 20 MG TAB PO (22:11)
[2019-04-04] MEDS: PANTOPRAZOLE (EC) 40 MG TAB PO (06:00)
[2019-04-04 07:06] LABS: ADD MAN DIFF? NO
[2019-04-04 07:10] LABS: WHITE BLOOD COUNT 10.3 10^3/ul (4.8-10.8)
[2019-04-04 07:10] LABS: ABNORMAL IP MESSAGE 1; BASOPHIL # 0.1 10^3/ul (0.0-0.1); BASOPHILS % 0.9 % (0.0-2.0); EOSINOPHILS # 0.4 10^3/ul (0.0-0.5); EOSINOPHILS % 3.6 % (0.0-7.0); HEMATOCRIT 26.3 % (37.0-47.0); HEMOGLOBIN 7.6 g/dl (12.0-16.0); LYMPHOCYTES # 1.9 10^3/ul (0.8-2.9); LYMPHOCYTES % 18.5 % (15.0-51.0); MEAN CORPUSCULAR HEMOGLOBIN 23.5 pg (29.0-33.0); MEAN CORPUSCULAR HGB CONC 28.9 g/dl (32.0-37.0); MEAN CORPUSCULAR VOLUME 81.2 fl (82.0-101.0); MONOCYTE # 0.8 10^3/ul (0.3-0.9); MONOCYTES % 7.7 % (0.0-11.0); NEUTROPHILS % 67.7 % (39.0-77.0); NUCLEATED RED BLOOD CELLS # 0.1 10^3/ul (0.0-0.0); NUCLEATED RED BLOOD CELLS% 1.1 /100WBC (0.0-0.0); PLATELET COUNT 612 10^3/UL (140-415); RED BLOOD COUNT 3.24 10^6/ul (4.20-5.40); RED CELL DISTRIBUTION WIDTH 22.4 % (11.5-14.5)
[2019-04-04 07:18] LABS: POSITIVE DIFF @See below
[2019-04-04] MEDS: HYDROCODONE/APAP (5/325) TAB PO (07:21)
[2019-04-04] MEDS: MAGNESIUM HYDROXIDE 30ML CUP PO (07:21)
[2019-04-04 07:32] LABS: ANION GAP 13 (5-13); BLOOD UREA NITROGEN 10 mg/dl (7-20); CALCIUM 8.7 mg/dl (8.4-10.2); CARBON DIOXIDE 23 mmol/L (21-31); CHLORIDE 107 mmol/L (97-110); CREATININE 0.81 mg/dl (0.44-1.00); Estimated GFR > 60 mL/min (>60); GLUCOSE 105 mg/dl (70-220); POTASSIUM 4.1 mmol/L (3.5-5.1); SODIUM 143 mmol/L (135-144)
[2019-04-04] MEDS: BISACODYL 10 MG SUPP PR (08:33)
[2019-04-04] MEDS: FAMOTIDINE 20 MG TAB PO (09:34)
[2019-04-04] MEDS: SUCRALFATE 1 GM TAB PO ×2 (09:34→12:14)
[2019-04-04] MEDS: FERROUS SULFATE (EC) 325 MG TAB PO ×2 (09:35→12:14)
[2019-04-04] MEDS: hydrALAzine 20 MG INJ IV (10:17)
[2019-04-04] MEDS: morphine 2 MG INJ IV ×2 (10:17→15:33)
[2019-04-04] MEDS ORDERED: POLYETHYLENE GLYCOL 17 GM PACKET PO (10:30)
[2019-04-04] MEDS: ONDANSETRON 4 MG TAB PO (12:14)
[2019-04-04] MEDS: ONDANSETRON 4 MG INJ IV (12:28)
[2019-04-04] MEDS: SOD FERRIC GLUC COMPLX 125 MG in SOD CHLORIDE 0.9% 100 ML IVPB (13:55)
[2019-04-04] MEDS ORDERED: PANTOPRAZOLE (EC) 40 MG TAB PO (18:00)
== END 2019-04-04 16:10 | disposition home or self-care (01) | DRG 812 ==
LOC: FTE 07:28 → PP2 10:07 → MS1 20:47
PROVIDERS: Internal Medicine; Pediatrics
PROC: 30233N1 Transfusion of Nonautologous Red Blood Cells into Peripheral Vein, Percutaneous Approach (ICD-10-PCS; principal; 2019-04-03 16:15)
PROC: 0DB68ZX Excision of Stomach, Via Natural or Artificial Opening Endoscopic, Diagnostic (ICD-10-PCS; 2019-04-03 16:15)
DX: D64.9 Anemia, unspecified (principal); Z68.42 Body mass index [BMI] 45.0-49.9, adult; E66.01 Morbid (severe) obesity due to excess calories; K29.50 Unspecified chronic gastritis without bleeding; F12.10 Cannabis abuse, uncomplicated; R10.13 Epigastric pain; J45.909 Unspecified asthma, uncomplicated; I10 Essential (primary) hypertension; K59.00 Constipation, unspecified; D50.9 Iron deficiency anemia, unspecified; Z71.3 Dietary counseling and surveillance; Z90.49 Acquired absence of other specified parts of digestive tract
CPT/HCPCS: 36415; 36430; 74018; 74176; 80048; 80053; 80061; 81001; 81025; 82270; 83036; 83540; 83690; 83735; 84100; 84436; 84443; 84479; 85014; 85018; 85025; 85049; 85610; 85670; 85730; 86850; 86900; 86901; 86920; 88305; 88312; 99285-25

== ENCOUNTER 2019-05-31 16:13 | Inpatient (IN) | payer OTHER ==
[2019-05-31 17:08] LABS: WHITE BLOOD COUNT 8.6 10^3/ul (4.8-10.8)
[2019-05-31 17:08] LABS: ABNORMAL IP MESSAGE 1; HEMATOCRIT 25.1 % (37.0-47.0); MEAN CORPUSCULAR HEMOGLOBIN 20.8 pg (29.0-33.0); MEAN CORPUSCULAR HGB CONC 27.5 g/dl (32.0-37.0); MEAN CORPUSCULAR VOLUME 75.8 fl (82.0-101.0); MEAN PLATELET VOLUME 10.6 fl (7.4-10.4); NUCLEATED RED BLOOD CELLS% 0.2 /100WBC (0.0-0.0); PLATELET COUNT 647 10^3/UL (140-415); RED BLOOD COUNT 3.31 10^6/ul (4.20-5.40); RED CELL DISTRIBUTION WIDTH 26.2 % (11.5-14.5)
[2019-05-31 17:20] LABS: ADD MAN DIFF? YES; HEMOGLOBIN 6.9 g/dl (12.0-16.0); POSITIVE DIFF @See below
[2019-05-31 17:38] LABS: ADD UMIC YES; UR ASCORBIC ACID NEGATIVE (NEGATIVE); UR BACTERIA FEW /HPF (NONE SEEN); UR BILIRUBIN (Dip) NEGATIVE (NEGATIVE); UR BLOOD (Dip) 2+ mg/dL (NEGATIVE); UR CLARITY CLOUDY (CLEAR); UR COLOR YELLOW (YELLOW); UR GLUCOSE (Dip) NEGATIVE (NEGATIVE); UR KETONES (Dip) NEGATIVE (NEGATIVE); UR LEUKOCYTE ESTERASE (Dip) NEGATIVE Leu/ul (NEGATIVE); UR MUCUS FEW /HPF (NONE SEEN); UR NITRITE (Dip) NEGATIVE (NEGATIVE); UR RBC 2 /HPF (0-5); UR SPECIFIC GRAVITY (Dip) 1.028 (1.003-1.030); UR SQUAMOUS EPITHELIAL CELL FEW /HPF (FEW); UR TOTAL PROTEIN (Dip) NEGATIVE (NEGATIVE); UR UROBILINOGEN (Dip) NEGATIVE (NEGATIVE); UR WBC 4 /HPF (0-5)
[2019-05-31] MEDS: SOD CHLORIDE 0.9% 0 ML IV (18:07)
[2019-05-31 19:00] LABS: ANION GAP 10 (5-13); BLOOD UREA NITROGEN 12 mg/dl (7-20); CALCIUM 9.6 mg/dl (8.4-10.2); CARBON DIOXIDE 25 mmol/L (21-31); CHLORIDE 107 mmol/L (97-110); CREATININE 0.98 mg/dl (0.44-1.00); Estimated GFR > 60 mL/min (>60); GLUCOSE 114 mg/dl (70-220); POTASSIUM 3.7 mmol/L (3.5-5.1); SODIUM 142 mmol/L (135-144)
[2019-05-31] MEDS ORDERED: ONDANSETRON 4 MG INJ IV (19:00)
[2019-05-31] MEDS ORDERED: NACL 0.9% 3 ML SYG IV (19:00)
[2019-05-31] MEDS ORDERED: ACETAMINOPHEN 325 MG TAB PO ×2 (19:00)
[2019-05-31] MEDS ORDERED: HYDROCODONE/APAP (5/325) TAB PO (19:00)
[2019-05-31] MEDS: KETOROLAC 30 MG INJ IV (21:09)
[2019-06-01] MEDS: morphine 4 MG/ML VIAL IV ×2 (01:49→07:50)
[2019-06-01 06:05] LABS: IMMEDIATE SPIN CROSSMATCH 1 3
[2019-06-01] MEDS: PANTOPRAZOLE (EC) 40 MG TAB PO ×2 (06:27→17:35)
[2019-06-01] MEDS: FERROUS SULFATE (EC) 325 MG TAB PO ×3 (08:28→21:32)
[2019-06-01] MEDS: AMLODIPINE 5 MG TAB PO (08:29)
[2019-06-01] MEDS: SOD CHLORIDE 0.9% 1,000 ML IV (09:26)
[2019-06-01] MEDS: ONDANSETRON 4 MG INJ IV (10:24)
[2019-06-01] MEDS: CARISOPRODOL 350 MG TAB PO ×2 (13:03→21:32)
[2019-06-01] MEDS: morphine 2 MG INJ IV ×3 (13:06→22:58)
[2019-06-01] MEDS: SOD FERRIC GLUC COMPLX 125 MG in SOD CHLORIDE 0.9% 100 ML IVPB (14:56)
[2019-06-01 15:53] LABS: ADD MAN DIFF? NO
[2019-06-01 15:56] LABS: ABNORMAL IP MESSAGE 1; BASOPHILS % 0.4 % (0.0-2.0); EOSINOPHILS # 0.3 10^3/ul (0.0-0.5); EOSINOPHILS % 2.6 % (0.0-7.0); HEMOGLOBIN 8.6 g/dl (12.0-16.0); LYMPHOCYTES # 1.7 10^3/ul (0.8-2.9); LYMPHOCYTES % 16.4 % (15.0-51.0); MEAN CORPUSCULAR HEMOGLOBIN 22.5 pg (29.0-33.0); MEAN CORPUSCULAR HGB CONC 28.7 g/dl (32.0-37.0); MEAN CORPUSCULAR VOLUME 78.3 fl (82.0-101.0); MEAN PLATELET VOLUME 10.6 fl (7.4-10.4); MONOCYTE # 0.6 10^3/ul (0.3-0.9); MONOCYTES % 5.6 % (0.0-11.0); NEUTROPHIL # 7.6 10^3/ul (1.6-7.5); NEUTROPHILS % 74.6 % (39.0-77.0); PLATELET COUNT 575 10^3/UL (140-415); RED BLOOD COUNT 3.83 10^6/ul (4.20-5.40); RED CELL DISTRIBUTION WIDTH 23.9 % (11.5-14.5)
[2019-06-01 15:56] LABS: WHITE BLOOD COUNT 10.2 10^3/ul (4.8-10.8)
[2019-06-01 16:03] LABS: POSITIVE DIFF @See below
[2019-06-01 16:06] LABS: HEMOGLOBIN A1C 5.3 % (0-5.9)
[2019-06-01 16:21] LABS: ALANINE AMINOTRANSFERASE 16 IU/L (13-69); ALBUMIN/GLOBULIN RATIO 1.25; ALKALINE PHOSPHATASE 46 IU/L (42-121); ANION GAP 8 (5-13); ASPARTATE AMINO TRANSFERASE 26 IU/L (15-46); BILIRUBIN,INDIRECT 0.4 mg/dl (0-1.1); BILIRUBIN,TOTAL 0.4 mg/dl (0.2-1.3); BLOOD UREA NITROGEN 13 mg/dl (7-20); CALCIUM 8.8 mg/dl (8.4-10.2); CARBON DIOXIDE 25 mmol/L (21-31); CHLORIDE 107 mmol/L (97-110); CREATININE 0.82 mg/dl (0.44-1.00); Estimated GFR > 60 mL/min (>60); GLUCOSE 95 mg/dl (70-220); MAGNESIUM 1.8 mg/dl (1.7-2.5); POTASSIUM 3.6 mmol/L (3.5-5.1); SODIUM 140 mmol/L (135-144); TOTAL PROTEIN 7.2 g/dl (6.1-8.1)
[2019-06-01] MEDS: traMADol-APAP 37.5-325 1 TAB PO (21:32)
[2019-06-02] MEDS: morphine 2 MG INJ IV ×3 (06:04→18:03)
[2019-06-02] MEDS: PANTOPRAZOLE (EC) 40 MG TAB PO ×2 (06:04→17:48)
[2019-06-02] MEDS: ONDANSETRON 4 MG INJ IV (08:24)
[2019-06-02] MEDS: CARISOPRODOL 350 MG TAB PO ×3 (09:08→21:32)
[2019-06-02] MEDS: FERROUS SULFATE (EC) 325 MG TAB PO ×3 (09:08→21:31)
[2019-06-02] MEDS: AMLODIPINE 5 MG TAB PO (09:09)
[2019-06-02 10:26] LABS: ADD MAN DIFF? NO
[2019-06-02 10:30] LABS: WHITE BLOOD COUNT 9.2 10^3/ul (4.8-10.8)
[2019-06-02 10:30] LABS: ABNORMAL IP MESSAGE 1; BASOPHILS % 0.4 % (0.0-2.0); EOSINOPHILS # 0.3 10^3/ul (0.0-0.5); EOSINOPHILS % 3.4 % (0.0-7.0); HEMATOCRIT 30.8 % (37.0-47.0); HEMOGLOBIN 8.8 g/dl (12.0-16.0); LYMPHOCYTES # 1.7 10^3/ul (0.8-2.9); LYMPHOCYTES % 18.3 % (15.0-51.0); MEAN CORPUSCULAR HEMOGLOBIN 22.2 pg (29.0-33.0); MEAN CORPUSCULAR HGB CONC 28.6 g/dl (32.0-37.0); MEAN CORPUSCULAR VOLUME 77.8 fl (82.0-101.0); MEAN PLATELET VOLUME 10.5 fl (7.4-10.4); MONOCYTE # 0.7 10^3/ul (0.3-0.9); MONOCYTES % 7.1 % (0.0-11.0); NEUTROPHIL # 6.5 10^3/ul (1.6-7.5); NEUTROPHILS % 70.4 % (39.0-77.0); NUCLEATED RED BLOOD CELLS% 0.3 /100WBC (0.0-0.0); PLATELET COUNT 527 10^3/UL (140-415); RED BLOOD COUNT 3.96 10^6/ul (4.20-5.40); RED CELL DISTRIBUTION WIDTH 23.8 % (11.5-14.5)
[2019-06-02 10:35] LABS: POSITIVE DIFF @See below
[2019-06-02] MEDS: traMADol-APAP 37.5-325 1 TAB PO (10:38)
[2019-06-02 11:00] LABS: ANION GAP 9 (5-13); BLOOD UREA NITROGEN 11 mg/dl (7-20); CARBON DIOXIDE 24 mmol/L (21-31); CHLORIDE 106 mmol/L (97-110); CREATININE 0.83 mg/dl (0.44-1.00); Estimated GFR > 60 mL/min (>60); GLUCOSE 91 mg/dl (70-220); POTASSIUM 3.8 mmol/L (3.5-5.1); SODIUM 139 mmol/L (135-144)
[2019-06-02] MEDS: SOD FERRIC GLUC COMPLX 125 MG in SOD CHLORIDE 0.9% 100 ML IVPB (12:04)
[2019-06-03] MEDS: morphine 2 MG INJ IV ×2 (01:26→07:38)
[2019-06-03] MEDS: PANTOPRAZOLE (EC) 40 MG TAB PO (06:35)
[2019-06-03] MEDS ORDERED: traMADol 50 MG TAB PO (08:00)
[2019-06-03] MEDS: CARISOPRODOL 350 MG TAB PO ×2 (08:47→12:54)
[2019-06-03] MEDS: FERROUS SULFATE (EC) 325 MG TAB PO ×2 (08:47→12:54)
[2019-06-03] MEDS: AMLODIPINE 5 MG TAB PO (08:48)
[2019-06-03] MEDS: ONDANSETRON 4 MG INJ IV (09:43)
[2019-06-03 09:46] LABS: ADD MAN DIFF? NO
[2019-06-03 09:55] LABS: WHITE BLOOD COUNT 13.7 10^3/ul (4.8-10.8)
[2019-06-03 09:55] LABS: ABNORMAL IP MESSAGE 1; BASOPHIL # 0.1 10^3/ul (0.0-0.1); BASOPHILS % 0.4 % (0.0-2.0); EOSINOPHILS # 0.4 10^3/ul (0.0-0.5); EOSINOPHILS % 2.8 % (0.0-7.0); HEMATOCRIT 32.5 % (37.0-47.0); HEMOGLOBIN 9.3 g/dl (12.0-16.0); LYMPHOCYTES # 1.6 10^3/ul (0.8-2.9); LYMPHOCYTES % 11.6 % (15.0-51.0); MEAN CORPUSCULAR HEMOGLOBIN 22.5 pg (29.0-33.0); MEAN CORPUSCULAR HGB CONC 28.6 g/dl (32.0-37.0); MEAN CORPUSCULAR VOLUME 78.7 fl (82.0-101.0); MEAN PLATELET VOLUME 10.5 fl (7.4-10.4); MONOCYTE # 0.7 10^3/ul (0.3-0.9); MONOCYTES % 5.1 % (0.0-11.0); NEUTROPHIL # 10.9 10^3/ul (1.6-7.5); NEUTROPHILS % 79.5 % (39.0-77.0); NUCLEATED RED BLOOD CELLS% 0.2 /100WBC (0.0-0.0); PLATELET COUNT 525 10^3/UL (140-415); RED BLOOD COUNT 4.13 10^6/ul (4.20-5.40); RED CELL DISTRIBUTION WIDTH 24.1 % (11.5-14.5)
[2019-06-03 10:03] LABS: POSITIVE DIFF @See below
[2019-06-03 10:18] LABS: ANION GAP 11 (5-13); BLOOD UREA NITROGEN 13 mg/dl (7-20); CALCIUM 9.4 mg/dl (8.4-10.2); CARBON DIOXIDE 21 mmol/L (21-31); CHLORIDE 108 mmol/L (97-110); CREATININE 0.87 mg/dl (0.44-1.00); Estimated GFR > 60 mL/min (>60); GLUCOSE 123 mg/dl (70-220); POTASSIUM 3.9 mmol/L (3.5-5.1); SODIUM 140 mmol/L (135-144)
[2019-06-03] MEDS: SOD FERRIC GLUC COMPLX 125 MG in SOD CHLORIDE 0.9% 100 ML IVPB (13:00)
== END 2019-06-03 15:18 | disposition home or self-care (01) | DRG 812 ==
LOC: 2NE 18:37 → FTE 16:13 → 2NE 18:37
PROC: 30233N1 Transfusion of Nonautologous Red Blood Cells into Peripheral Vein, Percutaneous Approach (ICD-10-PCS; principal; 2019-05-31)
DX: D50.0 Iron deficiency anemia secondary to blood loss (chronic) (principal); Z68.41 Body mass index [BMI] 40.0-44.9, adult; I16.0 Hypertensive urgency; K29.70 Gastritis, unspecified, without bleeding; I10 Essential (primary) hypertension; D63.8 Anemia in other chronic diseases classified elsewhere; E66.9 Obesity, unspecified; D25.9 Leiomyoma of uterus, unspecified; G89.29 Other chronic pain; Z88.0 Allergy status to penicillin
CPT/HCPCS: 36430; 72110; 76830; 76856; 80048; 80053; 81001; 83036; 83735; 84703; 85025; 86850; 86900; 86901; 86920; 87086; 99285-25

== ENCOUNTER 2019-07-09 01:51 | Emergency (ER) | payer OTHER ==
[2019-07-09] MEDS: HYDROCODONE/APAP (10/325) TAB PO (02:33)
== END 2019-07-09 03:37 | disposition home or self-care (01) ==
LOC: FTE 01:51
DX: K08.89 Other specified disorders of teeth and supporting structures (principal); F17.210 Nicotine dependence, cigarettes, uncomplicated
CPT/HCPCS: 99283; Z7502